=== PATIENT | female | born 1960 | race Caucasian/White ===

== ENCOUNTER 2016-10-08 18:38 | Emergency (ER) | payer MEDICARE, MEDICAID ==
[2016-10-08] MEDS ORDERED: ASPIRIN 81 MG TABLET, CHEWABLE PO ONE (18:44)
--- NOTE | 2016-10-08 18:46 | ER Document Report ---
ED Medical Screen (RME) - General Chief Complaint: Shortness Of Breath Stated Complaint: DIFFICULTY BREATHING/ARM NUMBNESS Mode of Arrival: Ambulatory Information source: Patient Notes: Patient presents to the emergency department with complaints of chest pain pain down her left arm since yesterday. Left arm tender when raising arm, chest wall ttp. Pt reports SOB.. dENIESs other symptoms such as diarrhea vomiting diarrhea fever. No history of cardiac disease. Patient does smoke, has high blood pressure. TRAVEL OUTSIDE OF THE [place] IN LAST 30 DAYS: No - Related Data Allergies/Adverse Reactions: Penicillins Allergy (Verified 10/08/16 18:44) Past Medical History - Social History Chew tobacco use (# tins/day): No Frequency of alcohol use: None Drug Abuse: None - Past Medical History Cardiac Medical History: Reports: Hx Hypertension Pulmonary Medical History: Reports: Hx Asthma Neurological Medical History: Reports: Hx Migraine Renal/ Medical History: Denies: Hx Kidney Stones, Hx Peritoneal Dialysis Musculoskeltal Medical History: Reports Hx Arthritis, Reports Hx Musculoskeletal Deformity Psychiatric Medical History: Reports: Hx Anxiety, Hx Depression Past Surgical History: Reports: Hx Abdominal Surgery - hiatal hernia, Hx Adenoidectomy, Hx Appendectomy, Hx Cholecystectomy, Hx Tonsillectomy, Hx Tubal Ligation - Immunizations Immunizations up to date: Yes Hx Diphtheria, Pertussis, Tetanus Vaccination: Yes
[2016-10-08 19:41] LABS: ALANINE AMINOTRANSFERASE 29 U/L (9-52); ALBUMIN 4.3 g/dL (3.5-5.0); ALKALINE PHOSPHATASE 67 U/L (38-126); ANION GAP 10 (5-19); ASPARTATE AMINO TRANSFERASE 26 U/L (14-36); BILIRUBIN,TOTAL 0.5 mg/dL (0.2-1.3); BLOOD UREA NITROGEN 14 mg/dL (7-20); CALCIUM 11.1 mg/dL (8.4-10.2); CARBON DIOXIDE 27 mmol/L (22-30); CHLORIDE 103 mmol/L (98-107); CREATININE RESULT 0.76 mg/dL (0.52-1.25); GLUCOSE 133 mg/dL (75-110); POTASSIUM 4.1 mmol/L (3.6-5.0); SODIUM 140.1 mmol/L (137-145)
[2016-10-08 19:43] LABS: ABSOLUTE EOSINOPHILS # (AUTO) 0.1 10^3/uL (0.0-0.6); ABSOLUTE LYMPHOCYTES (AUTO) 1.8 10^3/uL (0.5-4.7); ABSOLUTE MONOCYTES (AUTO) 0.4 10^3/uL (0.1-1.4); ABSOLUTE NEUT (AUTO) 2.5 10^3/uL (1.7-8.2); BASOPHILS % (AUTO) 0.8 % (0-2); EOSINOPHILS % (AUTO) 2.9 % (0-6); HEMATOCRIT 42.9 % (36.0-47.0); HEMOGLOBIN 14.5 g/dL (12.0-15.5); HGB HCT DIFFERENCE 0.6; LYMPHOCYTES % (AUTO) 36.5 % (13-45); MEAN CORPUSCULAR HEMOGLOBIN 30.5 pg (27.0-33.4); MEAN CORPUSCULAR HGB CONC 33.8 g/dL (32.0-36.0); MEAN CORPUSCULAR VOLUME 90 fl (80-97); MONOCYTES % (AUTO) 7.8 % (3-13); RED BLOOD COUNT 4.75 10^6/uL (3.72-5.28); RED CELL DISTRIBUTION WIDTH 12.8 % (11.5-14.0); WHITE BLOOD COUNT 4.9 10^3/uL (4.0-10.5)
--- NOTE | 2016-10-08 20:09 | EKG REPORT ---
SEVERITY:- ABNORMAL ECG - SINUS RHYTHM LEFT AXIS DEVIATION NONSPECIFIC T ABNORMALITIES, ANTERIOR LEADS : Confirmed by: Francia Gutiérrez 08-Oct-2016 20:08:05
[2016-10-08 21:36] LABS: CREATINE KINASE MB 0.35 ng/mL (<4.55)
[2016-10-08 21:39] LABS: TROPONIN I < 0.012 ng/mL
[2016-10-08 22:05] LABS: APPEARANCE,URINE CLEAR; BILIRUBIN,URINE NEGATIVE (NEGATIVE); CALCIUM OXALATE CRYSTALS,URINE FEW /HPF; GLUCOSE, URINE NEGATIVE (NEGATIVE); KETONES,URINE NEGATIVE (NEGATIVE); LEUKOCYTE ESTERASE,URINE NEGATIVE (NEGATIVE); NITRITE,URINE NEGATIVE (NEGATIVE); PROTEIN,URINE NEGATIVE (NEGATIVE); URINE SPECIFIC GRAVITY 1.024; UROBILINOGEN,URINE NEGATIVE mg/dL (<2.0)
--- NOTE | 2016-10-08 22:09 | ER Document Report ---
ED General - General Chief Complaint: Shortness Of Breath Stated Complaint: DIFFICULTY BREATHING/ARM NUMBNESS Mode of Arrival: Ambulatory Notes: Patient is a 56-year-old female with past medical history of hypertension who presents with 2 days of left shoulder pain as well as intermittent left-sided chest pain. Described the shoulder pain as being a severe, constant, sharp pain with radiation of the pain down the arm. This pain is worsened by range of motion of the shoulder. Denies history of similar symptoms in the past. She is not done anything to try to improve her symptoms. She has not seen her primary care doctor regarding today's concerns. She also notes that she has had intermittent central chest pain that is likewise described as being sharp and mild in nature. Denies any history of DVT or pulmonary embolus. No history of ACS. Denies any active chest pain at this time. Denies any associated nausea, vomiting, dyspnea, or diaphoresis. TRAVEL OUTSIDE OF THE [place] IN LAST 30 DAYS: No - Related Data Allergies/Adverse Reactions: Penicillins Allergy (Verified 10/08/16 18:44) Past Medical History - General Information source: Patient - Social History Smoking Status: Current Every Day Smoker Chew tobacco use (# tins/day): No Frequency of alcohol use: None Drug Abuse: None Lives with: Spouse/Significant other Family History: Reviewed & Not Pertinent - Past Medical History Cardiac Medical History: Reports: Hx Hypertension Pulmonary Medical History: Reports: Hx Asthma Neurological Medical History: Reports: Hx Migraine Renal/ Medical History: Denies: Hx Kidney Stones, Hx Peritoneal Dialysis Musculoskeltal Medical History: Reports Hx Arthritis, Reports Hx Musculoskeletal Deformity Psychiatric Medical History: Reports: Hx Anxiety, Hx Depression Past Surgical History: Reports: Hx Abdominal Surgery - hiatal hernia, Hx Adenoidectomy, Hx Appendectomy, Hx Cholecystectomy, Hx Tonsillectomy, Hx Tubal Ligation - Immunizations Immunizations up to date: Yes Hx Diphtheria, Pertussis, Tetanus Vaccination: Yes Review of Systems - Review of Systems Notes: Constitutional: Negative for fever. HENT: Negative for sore throat. Eyes: Negative for visual changes. Cardiovascular: Positive for chest pain. Respiratory: Negative for shortness of breath. Gastrointestinal: Negative for abdominal pain, vomiting or diarrhea. Genitourinary: Negative for dysuria. Musculoskeletal: Left shoulder pain Skin: Negative for rash. Neurological: Negative for headaches, weakness or numbness. 10 point ROS negative except as marked above and in HPI. Physical Exam - Vital signs Vitals: Temp Pulse Resp BP Pulse Ox 98.1 F 78 16 150/85 H 99 10/08/16 18:44 10/08/16 18:44 10/08/16 18:44 10/08/16 18:44 10/08/16 18:44 Interpretation: Hypertensive Notes: PHYSICAL EXAMINATION: GENERAL: Well-appearing, well-nourished and in no acute distress. HEAD: Atraumatic, normocephalic. EYES: Pupils equal round and reactive to light, extraocular movements intact, sclera anicteric, conjunctiva are normal. ENT: nares patent, oropharynx clear without exudates. Moist mucous membranes. NECK: Normal range of motion, supple without lymphadenopathy LUNGS: Breath sounds clear to auscultation bilaterally and equal. No wheezes rales or rhonchi. HEART: Regular rate and rhythm without murmurs Chest wall: Pain on palpation of the left central chest ABDOMEN: Soft, nontender, normoactive bowel sounds. No guarding, no rebound. No masses appreciated. EXTREMITIES: Pain with range of motion of the left shoulder. No deformity. AIN , PIN, IO intact bilaterally. RMU sensation is intact bilaterally NEUROLOGICAL: No focal neurological deficits. Moves all extremities spontaneously and on command. PSYCH: Normal mood, normal affect. SKIN: Warm, Dry, normal turgor, no rashes or lesions noted. Course - Re-evaluation Re-evalutation: 10/08/16 22:06 Patient presents with primary complaints of left shoulder pain with intermittent , reproducible left chest wall pain. Her primary complaint appears to be musculoskeletal in origin as she notes that the pain is worsened by range of motion of the left shoulder she does have pain radiating in a shooting, sharp fashion down her arm consistent likely a brachial plexopathy versus radiculopathy with associated bursitis of the shoulder. Low clinical suspicion for ACS given clinical history, exam, EKG without ST elevations or depressions, and negative initial troponin. HEART score less than or equal to 3. PE also seems unlikely given clinical history, absence of tachycardia or dyspnea. Well' s score is 0. CXR without evidence of pneumothorax or pneumonia. No widened mediastinum. Aortic dissection also seems unlikely given history, symmetric pulses, CXR, and vitals.At this time will discharge with return precautions and follow-up recommendations. Verbal discharge instructions given a the bedside and opportunity for questions given. Medication warnings reviewed. Patient is in agreement with this plan and has verbalized understanding of return precautions and the need for primary care follow-up in the next 24-72 hours. - Vital Signs Vital signs: Temp Pulse Resp BP Pulse Ox 98.1 F 78 15 111/70 97 10/08/16 18:44 10/08/16 18:44 10/08/16 22:00 10/08/16 22:00 10/08/16 22:00 - Laboratory Result Diagrams: 10/08/16 19:15 10/08/16 19:15 Laboratory results interpreted by me: 10/08/16 19:15 Glucose 133 H Calcium 11.1 H - Diagnostic Test Radiology reviewed: Image reviewed, Reports reviewed Radiology results interpreted by me: 10/08/16 22:08 Chest x-ray: No acute infiltrate or widened mediastinum - EKG Interpretation by Me Additional EKG results interpreted by me: 10/09/16 03:21 Normal sinus rhythm. No ST elevations or depressions. QTC is 416. Rate is 65. Discharge - Discharge Clinical Impression: Left shoulder pain Qualifiers: Chronicity: acute Qualified Code(s): M25.512 - Pain in left shoulder Condition: Good Disposition: HOME, SELF-CARE Additional Instructions: Your x-ray does not show any acute fracture today. He likely has a muscle strain You should continue to take anti-inflammatories such as ibuprofen 600 mg every 6 hours. Continue to apply ice to the area is much your able. Please follow-up with your primary care physician if you do not have improving your symptoms in the next 1-2 weeks. Please return immediately if you develop weakness, numbness, spreading redness from the area, or any other symptoms that are concerning to you. You were also seen today for chest pain. The exact cause of your pain is unclear but is likely related to your should pain. However , based on your cardiac enzyme testing, chest x-ray, and EKG it does not appear that it is from an immediately life-threatening cause at this time. Although your testing here is normal is critical that you follow-up with your primary care physician for continued evaluation of this chest pain and possible stress testing. I recommended you see your physician within the next 24-48 hours to be evaluated for consideration of a stress test. Please return to emergency department immediately if you have worsening of your chest pain, shortness of breath, vomiting, become unable to exert yourself due to pain or difficulty breathing, you pass out, or have any pain that radiates into your arms, jaw, or back. Please also return if you have any additional symptoms that are concerning to you.
[2016-10-08 23:17] VITALS: BP 111/70
== END 2016-10-08 22:19 | disposition home or self-care (01) ==
LOC: ER 18:38
DX: M25.512 Pain in left shoulder (principal); R07.89 Other chest pain; I10 Essential (primary) hypertension; J45.909 Unspecified asthma, uncomplicated; F17.200 Nicotine dependence, unspecified, uncomplicated; Z88.0 Allergy status to penicillin
CPT/HCPCS: 36415; 71020; 80053; 81001; 82550; 82553; 84484; 85025; 93005; 93010; 99285

== ENCOUNTER 2017-09-07 06:49 | Day surgery (SDC) | payer MEDICARE, MEDICAID ==
[2017-08-31 09:55] LABS: HEMATOCRIT 41.9 % (36.0-47.0); HEMOGLOBIN 14.4 g/dL (12.0-15.5); MEAN CORPUSCULAR HEMOGLOBIN 30.8 pg (27.0-33.4); MEAN CORPUSCULAR HGB CONC 34.4 g/dL (32.0-36.0); MEAN CORPUSCULAR VOLUME 90 fl (80-97); PLATELET COUNT 245 10^3/uL (150-450); RED BLOOD COUNT 4.68 10^6/uL (3.72-5.28); RED CELL DISTRIBUTION WIDTH 12.9 % (11.5-14.0); WHITE BLOOD COUNT 8.5 10^3/uL (4.0-10.5)
[2017-08-31 10:26] LABS: BLOOD UREA NITROGEN 12 mg/dL (7-20); CALCIUM 10.1 mg/dL (8.4-10.2); CARBON DIOXIDE 25 mmol/L (22-30); CHLORIDE 104 mmol/L (98-107); GLUCOSE 93 mg/dL (75-110); POTASSIUM 3.7 mmol/L (3.6-5.0); SODIUM 141.9 mmol/L (137-145)
[2017-08-31 10:27] LABS: ANION GAP 13 (5-19)
[~2017-09-07 06:49] MED LIST: CLINDAMYCIN 600 MG/D5W RTU 600 MG/50 ML RTUPB IV PRN; LACTATED RINGERS 1000 ML IV PRN; LIDOCAINE 0.5% INJ-PF (5 MG/ML) 50 ML SDV SUBCUT PRN
[2017-09-07] MEDS ORDERED: LIDOCAINE 1% INJ-PF (10 MG/ML) 30 ML SDV ONE (07:33)
[2017-09-07] MEDS ORDERED: KETAMINE HCL INJ 500 MG/10 ML VIAL ONE (08:58)
[2017-09-07] MEDS ORDERED: FENTANYL CITRATE INJ/PF 100 MCG/2 ML AMPUL ONE (08:58)
[2017-09-07] MEDS ORDERED: MIDAZOLAM 2 MG/2 ML INJ ONE (08:59)
[2017-09-07] MEDS ORDERED: PROPOFOL INJ 200 MG/20 ML VIAL IV ONE (08:59)
[2017-09-07] MEDS ORDERED: ACETAMINOPHEN 100 ML IV ONE (08:59)
[2017-09-07] MEDS ORDERED: FENTANYL CITRATE INJ/PF 100 MCG/2 ML AMPUL IV PRN (09:30)
[2017-09-07] MEDS ORDERED: DIPHENHYDRAMINE HCL 50 MG/ML VIAL IV PRN (09:30)
[2017-09-07] MEDS ORDERED: MEPERIDINE HCL/PF INJ 25 MG/1 ML DISP.SYRIN IV PRN (09:30)
[2017-09-07] MEDS ORDERED: PROMETHAZINE HCL INJ 25 MG/1 ML VIAL IV PRN (09:30)
[2017-09-07] MEDS ORDERED: MORPHINE SULFATE 10 MG/ML INJ IV PRN (09:30)
--- NOTE | 2017-09-07 10:01 | PDOC DISCHARGE SUMMARY ---
Discharge Summary (SDC) - Discharge Final Diagnosis: Lipoma of the sacrum Date of Surgery: 09/07/17 Discharge Date: 09/07/17 Condition: Good Treatment or Instructions: Patient to avoid sitting for prolonged periods; remove dressing in 48 hours; exercise meticulous perineal care. Prescription on chart for Toradol; return to [facility] follow-up with LEIGH Fu in 1-2 weeks Prescriptions: Ketorolac Tromethamine [Toradol 10 mg Tablet] 10 mg PO Q6HP PRN #20 tablet PRN Reason: Referrals: ZAN JOHNSON MD [Primary Care Provider] - Discharge Diet: As Tolerated Discharge Activity: Activity As Tolerated Home Care Assistance: None Needed Report the Following to Your Physician Immediately: Shortness of Breath, Increase in Pain, Fever over 101 Degrees
--- NOTE | 2017-09-07 10:06 | Operative Report ---
Operative Report DATE OF SURGERY: 09/07/17 PREOPERATIVE DIAGNOSIS: Lipoma of the sacrum POSTOPERATIVE DIAGNOSIS: Same OPERATION: Complete excision of lipoma of the sacrum, with primary closure SURGEON: DEBRA PEREZ ANESTHESIA: LMAC TISSUE REMOVED OR ALTERED: Lipoma in fragments COMPLICATIONS: None ESTIMATED BLOOD LOSS: Scant INTRAOPERATIVE FINDINGS: See below PROCEDURE: Patient is seen in the preop holding area with a left choroidal lipoma was marked. The lipoma was to the left of midline above left buttock. I marked the patient's skin for the proposed site of the operative incision. Patient was taken to the operating room where appropriate LMAC anesthesia was induced. She was placed in the right lateral decubitus position, buttocks and sacrococcygeal area exposed using tape the target tissue was prepped and draped in a sterile fashion. Surgical plan surgical timeout were conducted. Skin was anesthetized with 1% plain lidocaine as was the deep subcutaneous tissue. A slightly curvilinear 4-1/2 cm incision was made over the palpable mass. Subcutaneous mass was excised using a combination of blunt, electrocautery, and Ermelinda dissection. This was a lipoma based on clinical and intraoperative configuration appearance texture etc. It came out and fragments. It was sent to pathology for permanent analysis Excavation cavity examined carefully for residual lipoma and there was none. The wound was checked for bleeding and there was none. Wound closed with 3-0 Vicryl benzoin Steri-Strips and a gentle compression dressing applied. Patient tolerated procedure well, taken recovery room stable condition.
[2017-09-07] MEDS ORDERED: RINGERS SOLUTION,LACTATED 1,000 ML IV ONE (10:45)
[2017-09-07] MEDS ORDERED: ONDANSETRON HCL INJ/PF 4 MG/2 ML SDV ONE (12:16)
[2017-09-07 13:07] VITALS: BP 105/65
== END 2017-09-07 12:50 | disposition home or self-care (01) ==
LOC: OROUT 06:49
PROVIDERS: ATTEND Surgery
PROC: 0JB70ZZ Excision of Back Subcutaneous Tissue and Fascia, Open Approach (ICD-10-PCS; principal; 2017-09-07 09:00)
DX: D17.1 Benign lipomatous neoplasm of skin and subcutaneous tissue of trunk (principal); I10 Essential (primary) hypertension; Z88.3 Allergy status to other anti-infective agents; Z88.0 Allergy status to penicillin; Z87.891 Personal history of nicotine dependence; Z79.899 Other long term (current) drug therapy
CPT/HCPCS: 36415 ×2; 84132; 85027; 80048; 88304 ×2; 11406; J2250; J3010; J3490; J2405; J2704; J0131; 300

== ENCOUNTER 2018-02-05 05:25 | Day surgery (SDC) | payer MEDICARE, MEDICAID ==
[2018-01-24 09:49] LABS: INTERNATIONAL RATION (INR) 0.95; PROTHROMBIN TIME 13.2 SEC (11.4-15.4)
[2018-01-24 09:50] LABS: PARTIAL THROMBOPLASTIN TIME 26.4 SEC (23.5-35.8)
[2018-01-24 09:51] LABS: ABSOLUTE EOSINOPHILS # (AUTO) 0.1 10^3/uL (0.0-0.6); ABSOLUTE LYMPHOCYTES (AUTO) 1.6 10^3/uL (0.5-4.7); ABSOLUTE MONOCYTES (AUTO) 0.4 10^3/uL (0.1-1.4); ABSOLUTE NEUT (AUTO) 2.4 10^3/uL (1.7-8.2); BASOPHILS % (AUTO) 0.9 % (0-2); EOSINOPHILS % (AUTO) 3.1 % (0-6); HEMATOCRIT 40.1 % (36.0-47.0); LYMPHOCYTES % (AUTO) 34.9 % (13-45); MEAN CORPUSCULAR HEMOGLOBIN 31.3 pg (27.0-33.4); MEAN CORPUSCULAR HGB CONC 34.9 g/dL (32.0-36.0); MEAN CORPUSCULAR VOLUME 90 fl (80-97); MONOCYTES % (AUTO) 8.3 % (3-13); PLATELET COUNT 246 10^3/uL (150-450); RED BLOOD COUNT 4.46 10^6/uL (3.72-5.28); RED CELL DISTRIBUTION WIDTH 12.8 % (11.5-14.0); SEGMENTED NEUTROPHILS % (AUTO) 52.8 % (42-78); TOTAL CELLS COUNTED % (AUTO) 100 %; WHITE BLOOD COUNT 4.5 10^3/uL (4.0-10.5)
--- NOTE | 2018-01-25 00:21 | EKG REPORT ---
SEVERITY:- BORDERLINE ECG - SINUS BRADYCARDIA LEFT AXIS DEVIATION BORDERLINE T ABNORMALITIES, ANTERIOR LEADS : Confirmed by: Dary Gonzalez MD 25-Jan-2018 00:20:08
[~2018-02-05 05:25] MED LIST changes: -CLINDAMYCIN 600 MG/D5W RTU 600 MG/50 ML RTUPB IV PRN; +DOXYCYCLINE HYCLATE 100 MG in DEXTROSE 5%-WATER 250 ML IV PRN
[2018-02-05] MEDS ORDERED: LIDOCAINE 1%/EPINEPHRINE INJ 20 ML VIAL ONE (06:01)
[2018-02-05] MEDS ORDERED: SODIUM BICARBONATE 8.4% INJ 50 MEQ/50 ML DISP.SYRIN ONE (06:01)
[2018-02-05] MEDS ORDERED: NEO/POLYMYX B SULF/DEXAMETH OPH OINTMENT 3.5 GM ONE (06:01)
[2018-02-05] MEDS ORDERED: POVIDONE-IODINE 5% OPH PREP SOLN 30 ML ONE (06:01)
[2018-02-05] MEDS ORDERED: BALANCED SALT IRRIG SOLN COMB2 15 ML BOTTLE ONE (06:01)
[2018-02-05] MEDS ORDERED: FENTANYL CITRATE INJ/PF 100 MCG/2 ML AMPUL ONE (06:46)
[2018-02-05] MEDS ORDERED: MIDAZOLAM 2 MG/2 ML INJ ONE ×2 (06:46→07:54)
[2018-02-05] MEDS ORDERED: PROPOFOL INJ 200 MG/20 ML VIAL IV ONE (06:47)
[2018-02-05] MEDS ORDERED: MORPHINE SULFATE 10 MG/ML INJ IV PRN (09:44)
[2018-02-05] MEDS ORDERED: PROMETHAZINE HCL INJ 25 MG/1 ML VIAL IV PRN (09:44)
[2018-02-05] MEDS ORDERED: DIPHENHYDRAMINE HCL 50 MG/ML VIAL IV PRN (09:44)
[2018-02-05] MEDS ORDERED: FENTANYL CITRATE INJ/PF 100 MCG/2 ML AMPUL IV PRN ×3 (09:44)
[2018-02-05] MEDS ORDERED: MEPERIDINE HCL/PF INJ 25 MG/1 ML DISP.SYRIN IV PRN (09:44)
--- NOTE | 2018-02-05 10:14 | Operative Report ---
Operative Report DATE OF SURGERY: 02/05/18 PREOPERATIVE DIAGNOSIS: Bilateral dermatochalasis of the upper lids of the eyelid POSTOPERATIVE DIAGNOSIS: Same OPERATION: Bilateral upper lid blepharoplasty with exploration of the nasal and central compartments with electrodesiccation of excess fat SURGEON: MICHELLE OCHOA ANESTHESIA: LMAC TISSUE REMOVED OR ALTERED: Excess skin of bilateral upper eyelids COMPLICATIONS: None ESTIMATED BLOOD LOSS: Minimal PROCEDURE: The patient was marked the night before to be sure that the outlines would remove the maximum amount of excess skin. The patient was then seen prior to surgery and final questions were answered. The patient was brought into the operating room. The face and the eyelids were prepped with a Betadine solution and a Betadine ophthalmic solution. The patient was then draped in a sterile and aseptic manner. An outline was made for the amount of skin to be resected. The supratarsal fold was poorly defined and had to be created. Once the lower lines were drawn, the amount of skin to be resected was determined in multiple areas on each lid in order to define the upper line of resection. Once the outline was done on the first side it was then marked on the second side and adjustments were made to try to give as much symmetry as possible. After a timeout was performed the eyelid skin was anesthetized. An incision was then made at the lower outline and then the upper outline and then using a Whiteside tip the skin was removed. A strip of orbicularis oculi muscle was also removed. The bipolar was used for hemostasis throughout the case. The nasal and central fat pads were explored. Excess fat was removed via desiccation. There was no bleeding after the fat was removed. The bipolar was used to create a new supratarsal fold. This was started from the nasal side and the bipolar was used along the curvature where the new supratarsal fold would be best placed in order to cause a crease in give a better aesthetic appearance. The wound was irrigated with a Betadine saline solution. Again hemostasis was confirmed with the bipolar. Interrupted sutures were then placed to realign the skin margins. 6 .0 Prolene was used for the interrupted sutures. Attention was then turned towards the opposite side. The same procedure was then performed on the opposite side. Once the tacking sutures were in place attention was then turned towards the first side. A running 6-0 Prolene suture was used to close the skin margins on both sides. The eyes were irrigated with basic saline solution as well as the incision lines. Topical ophthalmic ointment was applied to both eyes and incisions. Throughout the case cool went I dressings were used to minimize bruising. At the end of the case eye pads with saline were placed and a light ice bag was applied. Patient was then reversed from anesthesia and taken to the PAR for recovery. This dictation was performed using [employer] naturally speaking. If there are any inconsistencies or hours please contact the dictating physician. Thank you very much Subjective: No complaints Objective: Vital signs stable afebrile No bleeding Dressing intact Assessment and plan: Doing well. Elevate the operative site. Resume medications. Take antibiotics for 1 day Follow-up Full instructions were given to the patient and family and they understand Portions of this note may be dictated using [employer] voice recognition software. Occasional variations and spelling and vocabulary could be possible and are unintentional. Additionally, there is a chance that some errors may not be caught or corrected. Please notify the offer of any discrepancies noted or if any statements are unclear.
[2018-02-05] MEDS: FENTANYL CITRATE INJ/PF 100 MCG/2 ML AMPUL ONE ×2 (10:19→10:25)
--- NOTE | 2018-02-05 10:19 | Discharge Summary ---
Discharge Summary (SDC) - Discharge Final Diagnosis: Excess skin of bilateral upper eyelids Date of Surgery: 02/05/18 Condition: Good Treatment or Instructions: Keep head elevated. Use balanced saline solution in each eye and then apply the ophthalmic ointment to each eye and incision every 6 hours and in the morning and at night before going to bed. Place ice on eyes for 5-10 minutes and then leave it off for approximately 30 minutes. Do not put ice packs directly on the incisions. Use the eye pads to protect the incisions and the eye and place the ice on top of the eye pads. Antibiotics for 1 day, then discontinue. Elevate operative area to decrease swelling. Do not strain, or lift heavy objects. Call for excessive bleeding, increased temperature of 101, uncontrolled pain, or excessive nausea or vomiting. You may reach Dr. Palmer through his office at [phone]. In the event of an emergency after hours, then contact Dr. Palmer through [facility]. Return to the office for a postop check on . The time will be scheduled by the nursing staff of [facility] prior to discharge. Please give the patient a copy of their labs and EKG so they can bring this to their PMD. Thank you Portions of this note may be dictated using [employer] voice recognition software. Occasional variations and spelling and vocabulary could be possible and are unintentional. Additionally, there is a chance that some errors may not be caught or corrected. Please notify the offer of any discrepancies noted or if any statements are unclear. Referrals: ZAN JOHNSON MD [Primary Care Provider] - Discharge Diet: As Tolerated Report the Following to Your Physician Immediately: Unusual Bleeding - Keep head elevated. Do not rub the eyes. Use ice on and off over the next several days to control swelling and bruising. Apply balanced saline solution to each eye and incision every 6 hours and before bedtime and in the morning on awakening. Apply Maxitrol ointment after the balanced saline solution with the above protocol.
[2018-02-05 12:17] VITALS: BP 124/74
== END 2018-02-05 12:22 | disposition home or self-care (01) ==
LOC: OROUT 05:25
PROVIDERS: ATTEND Plastic Surgery
PROC: 080NXZZ Alteration of Right Upper Eyelid, External Approach (ICD-10-PCS; 2018-02-05)
PROC: 080PXZZ Alteration of Left Upper Eyelid, External Approach (ICD-10-PCS; principal; 2018-02-05 07:30)
DX: H02.31 Blepharochalasis right upper eyelid (principal); H02.34 Blepharochalasis left upper eyelid; Z79.01 Long term (current) use of anticoagulants; E11.9 Type 2 diabetes mellitus without complications; I10 Essential (primary) hypertension; Z86.718 Personal history of other venous thrombosis and embolism; Z87.891 Personal history of nicotine dependence
CPT/HCPCS: 93005; 36415 ×2; 84132; 85025; 85610; 85730; 93010; 15823; J2250; J3490 ×6; J3010; J7060; J2704; 103

== ENCOUNTER → 2018-10-24 | Outpatient (CLI) | payer MEDICARE, MEDICAID ==
--- NOTE | 2018-10-25 14:07 | WOMENS IMAGING REPORT ---
EXAM DESCRIPTION: 3D SCREENING MAMMO BILAT COMPLETED DATE/TIME: 10/24/2018 2:53 pm REASON FOR STUDY: Z12.31 ENCOUNTER FOR SCREENING MAMMOGRAM FOR MALIGNANT NEOPLASM OF BREAST Z12.31 ENCNTR SCREEN MAMMOGRAM FOR MALIGNANT NEOPLASM OF BLADIMIR COMPARISON: 2015 TECHNIQUE: Standard craniocaudal and mediolateral oblique views of each breast recorded using digita l acquisition and breast tomosynthesis. LIMITATIONS: None. FINDINGS: No masses, calcifications or architectural distortion. No areas of suspicion. Read with the assistance of CAD. .[facility] - R2 Cenova Version 1.3 .[facility] - R2 Cenova Version 2.1 .[facility] - R2 Cenova Version 2.4 .[facility] [place] - R2 Cenova Version 2.4 .[facility] - R2 Coating And Baking Operator Version 9.2 IMPRESSION: NORMAL MAMMOGRAM. BIRADS 1. BREAST DENSITY: b. There are scattered areas of fibroglandular density. BIRAD: 1 NEGATIVE RECOMMENDATION: ROUTINE SCREENING COMMENT: The patient has been notified of the results by letter per SA requirements. Additional no tification policies are in place for contacting patient with suspicious or incomplete findings. Quality ID #[id number]: The [employer] recommends an annual screening mammogram for women aged 40 years or over. This facility utilizes a reminder system to ensure that all patients receive reminder letters, and/or direct phone calls for appointments. This includes reminders for routine scr eening mammograms, diagnostic mammograms, or other Breast Imaging Interventions when appropriate. Th is patient will be placed in the appropriate reminder system. The [employer] (ACR) has developed recommendations for screening MRI of the breast s in certain patient populations, to be used in conjunction with mammography. Breast MRI surveillanc e may be appropriate for women with more than 20% lifetime risk of developing breast cancer as deter mined by genetic testing, significant family history of the disease, or history of mantle radiation f or Hodgkins Disease. ACR Practice Guidelines 2008. DBT Technology DBT is a type of tomographic mammography. With conventional mammography, overlapping breast tissue ma y make lesions difficult to detect, even with good compression. DBT uses an x-ray tube that rotates a round the breast, taking images at different angles. These images are then combined to create thin sl ices of the breast that the radiologist can view as a 3D reconstruction. The feedPack unit can perform full-field digital mammograms (2D imaging); or DBT (3D imaging); or both, in a combination mode that quickly performs both the mammogram and the tomosynthesis scan while the breast is still compressed. PQRS 6045F: Fluoroscopic imaging is not utilized for breast tomosynthesis. TECHNICAL DOCUMENTATION: FINDING NUMBER: (1) ASSESSMENT: (1) JOB ID: [id number] [employer]- All Rights Reserved Reading location - IP/workstation name: [employer]ATIONAL MARKETING COORDINATOR-[email or web address]
== END ==
LOC: WI 09:15
PROVIDERS: ATTEND Internal Medicine
DX: Z12.31 Encounter for screening mammogram for malignant neoplasm of breast (principal)
CPT/HCPCS: 77063; 77067

== ENCOUNTER → 2018-10-25 | Outpatient (CLI) | payer MEDICARE, MEDICAID ==
--- NOTE | 2018-10-25 15:53 | RADIOLOGY REPORT (SQ) ---
EXAM DESCRIPTION: CT ABD/PELVIS WITH IV ORAL COMPLETED DATE/TIME: 10/25/2018 3:33 pm REASON FOR STUDY: VOMITING, UNSPECIFIED R11.10 VOMITING, UNSPECIFIED COMPARISON: 11/08/2014 TECHNIQUE: CT scan of the abdomen and pelvis performed using helical scanning technique with dynamic intravenous contrast injection. No oral contrast. Images reviewed with lung, soft tissue, and bone windows. Reconstructed coronal and sagittal MPR images reviewed. Delayed images for evaluation of the urinary system also acquired. All images stored on PACS. All CT scanners at this facility use dose modulation, iterative reconstruction, and/or weight based d osing when appropriate to reduce radiation dose to as low as reasonably achievable (ALARA). [facility]: Dose Right [facility]: CareDose [facility]: Dose Right [facility]: Teradose 4D [facility]: Prematics CONTRAST TYPE AND DOSE: contrast/concentration: Isovue 350.00 mg/ml; Total Contrast Delivered: 87.0 ml; Total Saline Delivered: 69.0 ml RENAL FUNCTION: Creatinine 0.7 RADIATION DOSE: CT Rad equipment meets quality standard of care and radiation dose reduction techniq ues were employed. CTDIvol: 7.4 - 8.5 mGy. DLP: 837 mGy-cm.. LIMITATIONS: None. FINDINGS: LOWER CHEST: No significant findings. No nodules or infiltrates. LIVER: Normal size. No masses. No dilated ducts. SPLEEN: Normal size. No focal lesions. PANCREAS: No masses. No significant calcifications. No adjacent inflammation or peripancreatic fluid collections. Pancreatic duct not dilated. GALLBLADDER: Surgically absent. ADRENAL GLANDS: No significant masses or asymmetry. RIGHT KIDNEY AND URETER: No solid masses. No significant calcifications. No hydronephrosis or hyd roureter. LEFT KIDNEY AND URETER: No solid masses. No significant calcifications. No hydronephrosis or hydr oureter. AORTA AND VESSELS: No aneurysm. No dissection. Renal arteries, SMA, celiac without stenosis. RETROPERITONEUM: No retroperitoneal adenopathy, hemorrhage or masses. BOWEL AND PERITONEAL CAVITY: Prior gastric banding. No inflammatory changes. No bowel wall thickeni ng. There are postsurgical changes in the right lower quadrant. Evidence of prior hernia repair. APPENDIX: Prior appendectomy. PELVIS: No mass. No free fluid. Normal bladder. ABDOMINAL WALL: No masses. No hernias. BONES: No significant or acute findings. OTHER: No other significant finding. IMPRESSION: NO SIGNIFICANT OR ACUTE FINDING IN THE ABDOMEN OR PELVIS ON CT SCAN WITH IV CONTRAST. TECHNICAL DOCUMENTATION: JOB ID: [id number] Quality ID # [id number]: Final reports with documentation of one or more dose reduction techniques (e.g., Au tomated exposure control, adjustment of the mA and/or kV according to patient size, use of iterative reconstruction technique) 2010 [employer]- All Rights Reserved Reading location - IP/workstation name: [email or web address]
== END ==
LOC: RAD 14:05
PROVIDERS: ATTEND Internal Medicine
DX: R11.10 Vomiting, unspecified (principal)
CPT/HCPCS: 74177; 82565

== ENCOUNTER 2018-11-04 14:22 | Emergency (ER) | payer MEDICARE, MEDICAID ==
[2018-11-04] MEDS ORDERED: IBUPROFEN 800 MG TABLET PO ONE (15:54)
[2018-11-04] MEDS ORDERED: KETOROLAC TROMETHAMINE 60 MG/2 ML SDV IM ONE (16:01)
--- NOTE | 2018-11-04 16:30 | RADIOLOGY REPORT (SQ) ---
EXAM DESCRIPTION: HIP RIGHT AP/LATERAL COMPLETED DATE/TIME: 11/04/2018 4:17 pm REASON FOR STUDY: fall pain swelling COMPARISON: None. NUMBER OF VIEWS: Two views. TECHNIQUE: AP pelvis and additional frog-leg view of the right hip. LIMITATIONS: None. FINDINGS: MINERALIZATION: Normal. RIGHT HIP: No fracture or dislocation. No worrisome bone lesions. LEFT HIP: No fracture or dislocation. No worrisome bone lesions. PUBIS AND ISCHIUM: No fracture. PELVIS: No fracture. SACRUM: No fracture or dislocation. No worrisome bone lesions. LOWER LUMBAR SPINE: No fracture or dislocation. No worrisome bone lesions. No significant disc disea se. SOFT TISSUES: No findings. OTHER: No other significant finding. IMPRESSION: NEGATIVE STUDY OF THE RIGHT HIP. NO RADIOGRAPHIC EVIDENCE OF ACUTE INJURY. TECHNICAL DOCUMENTATION: JOB ID: [id number] [employer]- All Rights Reserved Reading location - IP/workstation name: [email or web address]
--- NOTE | 2018-11-04 16:31 | RADIOLOGY REPORT (SQ) ---
EXAM DESCRIPTION: L SPINE WHOLE COMPLETED DATE/TIME: 11/04/2018 4:17 pm REASON FOR STUDY: fall pain swelling COMPARISON: 05/15/2011 NUMBER OF VIEWS: Five views including obliques. TECHNIQUE: AP, lateral, oblique, and sacral radiographic images acquired of the lumbar spine. LIMITATIONS: None. FINDINGS: MINERALIZATION: Normal. SEGMENTATION: Normal. No transitional anatomy. ALIGNMENT: Normal. VERTEBRAE: Maintained height. No fracture or worrisome bone lesion. DISCS: Mild to moderate disc space narrowing at L5-S1. No significant osteophytes or end plate irre gularity. POSTERIOR ELEMENTS: Moderate facet arthrosis lower lumbar spine. Pedicles are intact. No pars defe ct or posterior arch defects. HARDWARE: None in the spine. PARASPINAL SOFT TISSUES: Normal. PELVIS: Intact as visualized. No fractures or worrisome bone lesions. SI joints intact. OTHER: Interval lap band procedure and hernia repair with multiple innumerable surgical anchors over lying the right hemipelvis. Prior cholecystectomy, stable finding. IMPRESSION: 1. Degenerative mild to moderate changes as above. 2. No acute osseous findings. TECHNICAL DOCUMENTATION: JOB ID: [id number] [employer]- All Rights Reserved Reading location - IP/workstation name: [email or web address]
[2018-11-04 17:45] VITALS: BP 101/60
[2018-11-04] MEDS ORDERED: LIDOCAINE 5% (700 MG) TRANSDERMAL ADH..PATCH TP ONE (17:50)
--- NOTE | 2018-11-04 17:51 | ER Document Report ---
ED Extremity Problem, Lower - General Chief Complaint: Leg Pain Stated Complaint: FALL/SIDE PAIN Time Seen by Provider: 11/04/18 15:22 Primary Care Provider: [facility] [Provider Group] - Follow up as needed ZAN JOHNSON MD [Primary Care Provider] - Follow up in 3-5 days Mode of Arrival: Wheelchair Information source: Patient Notes: 58-year-old female presents to ED for complaint of right ankle coccyx and right pelvic pain. She states today she twisted her ankle as she fell landing on her back. Patient states she has a history of chronic back pain and nerve damage to her right leg. She states she is able to move her ankle freely and she does not needed x-ray but she does need her back and hip x-ray. TRAVEL OUTSIDE OF THE [place] IN LAST 30 DAYS: No - HPI Patient complains to provider of: Injury, Pain Location: Ankle, Back, Buttock, Hip Occurred: This morning Where: Home, Indoors Onset/Duration: Intermittent Quality of pain: Achy, Sharp Severity: Severe Pain Level: 5 Context: Fell, Twisted Recent injury: Yes Associated symptoms: Painful ambulation Exacerbated by: Movement, Walking Relieved by: Elevation, Ice, Rest - Related Data Allergies/Adverse Reactions: nitrofurantoin [From Macrobid] Allergy (Verified 11/04/18 14:45) Anxiety Penicillins Allergy (Verified 11/04/18 14:45) TAPE Allergy (Uncoded 11/04/18 14:45) RASH Past Medical History - General Information source: Patient - Social History Smoking Status: Current Every Day Smoker Cigarette use (# per day): Yes - 1/2 pack/day Chew tobacco use (# tins/day): No Smoking Education Provided: Yes - 4 minutes Frequency of alcohol use: None Drug Abuse: None Family History: Reviewed & Not Pertinent Patient has suicidal ideation: No Patient has homicidal ideation: No - Past Medical History Cardiac Medical History: Reports: Hx Hypertension Pulmonary Medical History: Reports: Hx Asthma EENT Medical History: Reports: None Neurological Medical History: Reports: Hx Migraine, Hx Seizures - POST THIRD 1980S, FROM [place]XEM[place] Endocrine Medical History: Reports: None Renal/ Medical History: Reports: None Malignancy Medical History: Reports: None GI Medical History: Reports: None Musculoskeletal Medical History: Reports Hx Arthritis, Reports Hx Musculoskeletal Deformity Skin Medical History: Reports None Psychiatric Medical History: Reports: Hx Anxiety, Hx Depression Traumatic Medical History: Reports: None Infectious Medical History: Reports: None Past Surgical History: Reports: Hx Abdominal Surgery - hiatal hernia lap band, abdominal hernia repair, Hx Adenoidectomy, Hx Appendectomy, Hx Cholecystectomy, Hx Tonsillectomy, Hx Tubal Ligation - Immunizations Immunizations up to date: Yes Hx Diphtheria, Pertussis, Tetanus Vaccination: Yes Review of Systems - Review of Systems Constitutional: No symptoms reported EENT: No symptoms reported Cardiovascular: No symptoms reported Respiratory: No symptoms reported Gastrointestinal: No symptoms reported Genitourinary: No symptoms reported Female Genitourinary: No symptoms reported Musculoskeletal: Back pain, Joint pain - Right hip and ankle, Muscle pain, Muscle stiffness. denies: Joint swelling Skin: No symptoms reported Hematologic/Lymphatic: No symptoms reported Neurological/Psychological: No symptoms reported -: Yes All other systems reviewed and negative Physical Exam - Vital signs Vitals: Temp Pulse Resp BP Pulse Ox 98.3 F 72 16 108/67 95 11/04/18 14:56 11/04/18 14:56 11/04/18 14:56 11/04/18 14:56 11/04/18 14:56 Interpretation: Normal - General General appearance: Appears well, Alert - HEENT Head: Normocephalic, Atraumatic Eyes: Normal Pupils: PERRL - Respiratory Respiratory status: No respiratory distress Chest status: Nontender Breath sounds: Normal Chest palpation: Normal - Cardiovascular Rhythm: Regular Heart sounds: Normal auscultation Murmur: No - Abdominal Inspection: Normal, Healed incision - Old scars Distension: No distension Bowel sounds: Normal Tenderness: Nontender Organomegaly: No organomegaly - Back Back: Normal, Nontender, Tender, Vertebra tenderness Notes: No signs or symptoms of cauda equina, no loss of control of bowel bladder, saddle anesthesia, loss control or sensation to the lower extremities. Patient is able to walk but states it is painful. - Extremities General upper extremity: Normal inspection, Nontender, Normal color, Normal ROM, Normal temperature General lower extremity: Normal inspection, Nontender, Normal color, Normal ROM, Normal temperature, Normal weight bearing. No: Rodríguez's sign Hip: Tender, Pain with ROM. No: Abrasion, Deformity, Dislocation, Ecchymosis, Instability, Laceration, Unable to bear weight Ankle: Normal, Nontender, Tender. No: Abrasion, Deformity, Ecchymosis, Edema, Instability, Laceration, Limited ROM, Positive Luevano's test, Unable to bear weight Foot: Normal, Nontender - Neurological Neuro grossly intact: Yes Cognition: Normal Orientation: AAOx4 Anay Coma Scale Eye Opening: Spontaneous [place] Coma Scale Verbal: Oriented [place] Coma Scale Motor: Obeys Commands [place] Coma Scale Total: 15 Speech: Normal Motor strength normal: LUE, RUE, LLE, RLE Sensory: Normal - Psychological Associated symptoms: Normal affect, Normal mood - Skin Skin Temperature: Warm Skin Moisture: Dry Skin Color: Normal Course - Re-evaluation Re-evalutation: 11/04/18 21:27 Patient stated that the Toradol injection really helped her pain a lot. She states she has a history of chronic pain in the back. She is able to walk after her Toradol injection. Patient treated with Lidoderm patch and given instructions on ibuprofen ice heat and exercise. Patient was discharged home with instructions to follow-up with primary care doctor. - Vital Signs Vital signs: Temp Pulse Resp BP Pulse Ox 98.3 F 60 16 101/60 94 11/04/18 17:44 11/04/18 17:44 11/04/18 17:44 11/04/18 17:44 11/04/18 17:44 - Diagnostic Test Radiology reviewed: Image reviewed, Reports reviewed Discharge - Discharge Clinical Impression: Acute exacerbation of chronic low back pain Fall Qualifiers: Encounter type: initial encounter Qualified Code(s): W19.XXXA - Unspecified fall, initial encounter Condition: Stable Disposition: HOME, SELF-CARE Additional Instructions: Chronic Back Pain Chronic back pain (pain persisting longer than three months) is a common problem. A medical evaluation can look for herniated disc, arthritis, osteoporosis, tumors, and infections. But at least half the time, there's no obvious treatable cause. Anxiety and depression tend to worsen back pain. Ibuprofen or other anti-inflammatory medicine can help. A heating pad, used for 15-20 minutes at a time, can ease pain. For this type of back pain, narcotic medicines should be avoided. Muscle relaxers are rarely helpful unless you're having spasms. Activity is important. Find an aerobic exercise program that your back can tolerate. Too much rest makes back pain worse. Specific back exercises are usually prescribed to strengthen the back and abdominal muscles. Often, a physical therapist can help. Avoid heavy lifting, working while bent over, or standing with both knees straight. Most back pain patients do better with a firm mattress. If new symptoms of a "herniated disc" (radiation of pain, numbness, or tingling down the back of the leg or weakness in the leg) occur, you should be re-examined. Toradol Injection You have been given an injection of ketorolac tromethamine (Toradol). This is an excellent, safe drug for pain control. It also has potent antiinflammato ry action. You should have significant pain relief within about one hour. Toradol is not addicting and is non-sedating. It does not interfere with driving or work. Call or return if you develop itching, hives, shortness of breath, or rash. MUSCLE RELAXERS: Muscle relaxing medications are usually prescribed for acute muscle spasm or injury to the neck and back. They are often combined with antiinflammatory pain medication for increased relief. You may stop the muscle relaxer when the pain and stiffness have improved. Start the medication again if spasms recur. Muscle relaxers may cause drowsiness, especially with the first dose. Do not operate machinery or drive while under the effects of the medication. Most muscle relaxers last up to 24 hours. Do not combine the medication with alcohol. ICE PACKS: Apply ice packs frequently against the painful area. Many different schedules are recommended, such as "20 minutes on, 20 minutes off" or "one hour ice, two hours rest." If you need to work, you may need to go longer between ice treatments. You should plan to have the area ice packed AT LEAST one fourth of the time. The ice should be applied over the wrap, tape, or splint, or over a layer of cloth -- not directly against the skin. Some ice bags have a built-in cloth and can be put directly on the skin. WARM PACKS: After approximately two days, apply gentle heat (such as a heating pad or hot water bottle) for about 20 to 30 minutes about every two hours -- at least four times daily. Warmth and elevation will help you make a more rapid recovery, and will ease the pain considerably. Do not use HOT heat, and never apply heat for longer than 30 minutes. The continuous heat can invisibly damage skin and muscles -- even when no burn is seen on the surface. Damaged muscles can make you MORE sore. Stretching Exercises for the Back The physician has recommended that you begin stretching exercises for your back. These are often used even while the back is painful. However, you should notify the physician if the activities seem to increase your pain. PELVIC TILT: Lie flat on your back with knees bent. Tighten your stomach and buttock muscles so it flattens your lower back against the floor. Hold 10 seconds. Repeat 10 times, twice daily. KNEE RAISE: Lying on the back with knees bent, raise one knee to your chest, then the other. Hold both knees against the chest 10 seconds, then lower one knee at a time. Repeat 10 times, twice daily. PARTIAL TRUNK RAISE: Lie face down, arms at your sides. Keeping your waist on the floor, use your arms raise your chest up. Support yourself on your elbows for 30 seconds. Repeat twice daily, increasing the time to two minutes as you recover. Ibuprofen Ibuprofen is an excellent, safe drug for pain control. In addition, it has potent antiinflammatory effects which are beneficial, especially in the treatment of injuries, arthritis, or tendonitis. It's best to take ibuprofen with food. Persons with ulcer disease or allergy to aspirin should notify their physician of this before taking ibuprofen. Take the medication exactly as prescribed. Don't take additional doses unless instructed to do so by your doctor. If you develop wheezing, shortness of breath, hives, faintness, stomach pain, vomiting, or dark black stools, return for re-evaluation at once. I have placed a Lidoderm patch on your back. If this helps your pain you can get [id number] Lidoderm patches or Aspercreme lidocaine for your back pain. You need to remove this patch in 12 hours please Have discussed your x-rays to your hip and your low back which shows no acute changes. I have given you a written report of these to follow-up with your primary doctor. FOLLOW-UP CARE: If you have been referred to a physician for follow-up care, call the physicians office for an appointment as you were instructed or within the next two days. If you experience worsening or a significant change in your symptoms, notify the physician immediately or return to the Emergency Department at any time for re-evaluation. Prescriptions: Cyclobenzaprine HCl [Flexeril 10 mg Tablet] 10 mg PO TIDP PRN #15 tab PRN Reason: Forms: Smoking Cessation Education, Return to Work Referrals: ZAN JOHNSON MD [Primary Care Provider] - Follow up in 3-5 days [facility] [Provider Group] - Follow up as needed
== END 2018-11-04 18:03 | disposition home or self-care (01) ==
LOC: ER 14:22
DX: M54.5 Low back pain (principal); R10.2 Pelvic and perineal pain; M25.571 Pain in right ankle and joints of right foot; M25.551 Pain in right hip; W19.XXXA Unspecified fall, initial encounter; Y92.009 Unspecified place in unspecified non-institutional (private) residence as the place of occurrence of the external cause; G89.29 Other chronic pain; F17.210 Nicotine dependence, cigarettes, uncomplicated; Z71.6 Tobacco abuse counseling; I10 Essential (primary) hypertension; J45.909 Unspecified asthma, uncomplicated; Z88.1 Allergy status to other antibiotic agents; Z88.0 Allergy status to penicillin; Z91.048 Other nonmedicinal substance allergy status
CPT/HCPCS: 99406; 99283; 96372; 73502; 72110; J1885

== ENCOUNTER 2019-02-18 12:42 | Emergency (ER) | payer MEDICARE, MEDICAID ==
[2019-02-18 14:29] LABS: ABSOLUTE EOSINOPHILS # (AUTO) 0.1 10^3/uL (0.0-0.6); ABSOLUTE LYMPHOCYTES (AUTO) 1.8 10^3/uL (0.5-4.7); ABSOLUTE MONOCYTES (AUTO) 0.4 10^3/uL (0.1-1.4); BASOPHILS % (AUTO) 0.9 % (0-2); EOSINOPHILS % (AUTO) 1.2 % (0-6); HEMATOCRIT 43.1 % (36.0-47.0); HEMOGLOBIN 14.7 g/dL (12.0-15.5); LYMPHOCYTES % (AUTO) 33.8 % (13-45); MEAN CORPUSCULAR HEMOGLOBIN 30.5 pg (27.0-33.4); MEAN CORPUSCULAR HGB CONC 34.1 g/dL (32.0-36.0); MEAN CORPUSCULAR VOLUME 89 fl (80-97); MONOCYTES % (AUTO) 6.7 % (3-13); PLATELET COUNT 252 10^3/uL (150-450); RED BLOOD COUNT 4.82 10^6/uL (3.72-5.28); RED CELL DISTRIBUTION WIDTH 12.9 % (11.5-14.0); SEGMENTED NEUTROPHILS % (AUTO) 57.4 % (42-78); TOTAL CELLS COUNTED % (AUTO) 100 %; WHITE BLOOD COUNT 5.2 10^3/uL (4.0-10.5)
[2019-02-18 14:48] LABS: ALANINE AMINOTRANSFERASE 26 U/L (9-52); ALBUMIN 4.1 g/dL (3.5-5.0); ALKALINE PHOSPHATASE 65 U/L (38-126); ANION GAP 8 (5-19); ASPARTATE AMINO TRANSFERASE 22 U/L (14-36); BILIRUBIN,DIRECT 0.2 mg/dL (0.0-0.4); BILIRUBIN,TOTAL 0.5 mg/dL (0.2-1.3); BLOOD UREA NITROGEN 11 mg/dL (7-20); CALCIUM 10.2 mg/dL (8.4-10.2); CARBON DIOXIDE 29 mmol/L (22-30); CHLORIDE 101 mmol/L (98-107); GLUCOSE 90 mg/dL (75-110); POTASSIUM 4.2 mmol/L (3.6-5.0); TOTAL PROTEIN 6.6 g/dL (6.3-8.2)
[2019-02-18] MEDS ORDERED: KETOROLAC TROMETHAMINE INJ/PF 30 MG/1 ML SDV IV ONE (15:28)
--- NOTE | 2019-02-18 16:49 | RADIOLOGY REPORT (SQ) ---
EXAM DESCRIPTION: CT ABD/PELVIS WITH IV ORAL COMPLETED DATE/TIME: 02/18/2019 4:34 pm REASON FOR STUDY: pain, h/o hernis and lap banding COMPARISON: 10/25/2018 TECHNIQUE: CT scan of the abdomen and pelvis performed using helical scanning technique with dynamic intravenous contrast injection. No oral contrast. Images reviewed with lung, soft tissue, and bone w indows. Reconstructed coronal and sagittal MPR images reviewed. Delayed images for evaluation of the urinary system also acquired. All images stored on PACS. All CT scanners at this facility use dose modulation, iterative reconstruction, and/or weight based d osing when appropriate to reduce radiation dose to as low as reasonably achievable (ALARA). [facility]: Dose Right [facility]: CareDose [facility]: Dose Right [facility]: Teradose 4D [facility]: [employer] Systems CONTRAST TYPE AND DOSE: contrast/concentration: Isovue 350.00 mg/ml; Total Contrast Delivered: 86.0 ml; Total Saline Delivered: 46.0 ml RENAL FUNCTION: GFR > 60. RADIATION DOSE: CT Rad equipment meets quality standard of care and radiation dose reduction techniq ues were employed. CTDIvol: 10.1 - 14.2 mGy. DLP: 1312 mGy-cm.. LIMITATIONS: None. FINDINGS: LOWER CHEST: No significant findings. LIVER: Normal size. No enhancing masses. No dilated ducts. SPLEEN: Normal size. No focal lesions. PANCREAS: No masses identified. No significant calcifications. No adjacent inflammation or peripancre atic fluid collections. Pancreatic duct not dilated. GALLBLADDER: Surgically absent. ADRENAL GLANDS: No significant masses. RIGHT KIDNEY AND URETER: No cysts identified. No solid masses identified. No calcified stones. No hyd ronephrosis or hydroureter. LEFT KIDNEY AND URETER: No cysts identified. No solid masses identified. No calcified stones. No hydr onephrosis or hydroureter. AORTA AND VESSELS: No aneurysm. No dissection. Renal arteries, SMA, celiac without significant stenos is. RETROPERITONEUM: No bulky retroperitoneal adenopathy. BOWEL AND PERITONEAL CAVITY: No obstruction or inflammatory changes. No free fluid. APPENDIX: Surgically absent. PELVIS: No mass. No free fluid. Unremarkable bladder. ABDOMINAL WALL: No masses. No hernias. BONES: No acute findings. OTHER: Band procedure. Tubing and right lower quadrant hardware appear unremarkable. IMPRESSION: NO ACUTE FINDINGS IN THE ABDOMEN OR PELVIS ON CT SCAN WITH IV CONTRAST. TECHNICAL DOCUMENTATION: JOB ID: [id number] Quality ID # [id number]: Final reports with documentation of one or more dose reduction techniques (e.g., Au tomated exposure control, adjustment of the mA and/or kV according to patient size, use of iterative reconstruction technique) 2010 [employer]- All Rights Reserved Reading location - IP/workstation name: [email or web address]
[2019-02-18 19:02] VITALS: BP 116/64
--- NOTE | 2019-02-18 19:52 | ER Document Report ---
Entered by ZENA BERGER SCRIBE 02/18/19 1346 Acting as scribe for:ZULEYKA VALDEZ DO ED General - General Chief Complaint: Abdominal Pain Stated Complaint: ABDOMINAL PAIN Time Seen by Provider: 02/18/19 13:21 Primary Care Provider: ZAN JOHNSON MD [Primary Care Provider] - Follow up as needed Notes: Patient is a 59-year-old female with a history of lap banding presenting to the emergency department complaining of abdominal pain. 4 years ago patient had an incisional hernia with multiple revisions and mesh at [place]. Patient states that the other day on 02/14 she attempted to lift a picture up standing on her couch to hang it, she felt a "tear" and then dropped the picture and got down. She then tried to separate 2 shopping carts today and felt another tear in her abdomen. Patient is afraid that she has torn her hernia as she is now having tearing pain in her abdominal musculature and feels like her abdomen is swelling. Denies any current vomiting or change in her bowel habits. Admits intermittent diarrhea and constipation. TRAVEL OUTSIDE OF THE [place] IN LAST 30 DAYS: No - Related Data Allergies/Adverse Reactions: nitrofurantoin [From Macrobid] Allergy (Verified 02/18/19 12:44) Anxiety Penicillins Allergy (Verified 02/18/19 12:44) TAPE Allergy (Uncoded 02/18/19 12:44) RASH Past Medical History - General Information source: Patient - Social History Smoking Status: Current Every Day Smoker Cigarette use (# per day): Yes Chew tobacco use (# tins/day): No Frequency of alcohol use: Rare Drug Abuse: None Family History: Reviewed & Not Pertinent Patient has suicidal ideation: No Patient has homicidal ideation: No - Past Medical History Cardiac Medical History: Reports: Hx Hypertension Pulmonary Medical History: Reports: Hx Asthma Neurological Medical History: Reports: Hx Migraine, Hx Seizures - POST THIRD 1980S, FROM [place] Musculoskeletal Medical History: Reports Hx Arthritis, Reports Hx Musculoskeletal Deformity Psychiatric Medical History: Reports: Hx Anxiety, Hx Depression Past Surgical History: Reports: Hx Abdominal Surgery - hiatal hernia lap band, abdominal hernia repair, Hx Adenoidectomy, Hx Appendectomy, Hx Cholecystectomy, Hx Tonsillectomy, Hx Tubal Ligation - Immunizations Immunizations up to date: Yes Hx Diphtheria, Pertussis, Tetanus Vaccination: Yes Review of Systems - Review of Systems Constitutional: No symptoms reported EENT: No symptoms reported Cardiovascular: No symptoms reported Respiratory: No symptoms reported Gastrointestinal: See HPI, Abdominal pain, Diarrhea. denies: Blood streaked bowels Genitourinary: No symptoms reported Female Genitourinary: No symptoms reported Musculoskeletal: No symptoms reported Skin: No symptoms reported Hematologic/Lymphatic: No symptoms reported Neurological/Psychological: No symptoms reported -: Yes All other systems reviewed and negative Physical Exam - Vital signs Vitals: Temp Pulse Resp BP Pulse Ox 98.4 F 78 16 127/80 H 97 02/18/19 12:48 02/18/19 12:48 02/18/19 12:48 02/18/19 12:48 02/18/19 12:48 - Notes Notes: PHYSICAL EXAM GENERAL: Alert, interacts well. No acute distress. HEAD: Normocephalic, atraumatic. EYES: Pupils equal, round, and reactive to light. Extraocular movements intact. ENT: Oral mucosa moist, tongue midline. NECK: Full range of motion. Supple. Trachea midline. LUNGS: Clear to auscultation bilaterally, no wheezes, rales, or rhonchi. No respiratory distress. HEART: Regular rate and rhythm. No murmurs, gallops, or rubs. ABDOMEN: Hard mechanical feeling 2 cm mass in the left upper quadrant that is nontender. Bulge in the midline of the upper abdomen consistent with diastasis rectus when she tries to sit up. Non-distended. Bowel sounds present in all 4 quadrants. No guarding, rigidity, or rebound. No irreducible herniated palpated EXTREMITIES: Moves all 4 extremities spontaneously. No edema, No cyanosis. NEUROLOGICAL: Alert and oriented x3. Normal speech. Biceps and patellar DTRs 2+ bilaterally. PSYCH: Normal affect, normal mood. SKIN: Warm, dry, normal turgor. No rashes or lesions noted. Course - Re-evaluation Re-evalutation: 02/18/19 18:35 CBC unremarkable, CMP unremarkable, CT scan of the abdomen pelvis does not show any acute process, LAP-BAND is in good position. Patient's physical exam is concerning for weakening of the abdominal muscles or new hernia, but there is no evidence of incarceration or strangulation. Patient currently appears to have an abdominal muscle strain, will be referred back to her primary surgeon, already has an appointment on . Discharged home. - Vital Signs Vital signs: Temp Pulse Resp BP Pulse Ox 97.6 F 52 L 16 116/64 98 02/18/19 18:56 02/18/19 18:56 02/18/19 18:56 02/18/19 18:56 02/18/19 18:56 - Laboratory Result Diagrams: 02/18/19 14:08 02/18/19 14:08 Discharge - Discharge Clinical Impression: Abdominal muscle strain Qualifiers: Encounter type: initial encounter Qualified Code(s): S39.011A - Strain of mus casi, fascia and tendon of abdomen, initial encounter Condition: Stable Disposition: HOME, SELF-CARE Additional Instructions: You appear to have strained your abdominal muscles. There is no evidence of hernia on your CAT scan today. This simply means that there is not currently any intestine or fat protruding through your abdominal muscles, when you stand up the bulging is consistent with possible hernia. It is very important that you follow-up with your primary care physician and your surgeon to see if they want to do any other surgeries to repair the muscles or if they want you to use abdominal binders for support and physical therapy instead. Do not lift anything heavier than 5 pounds until you follow-up with your surgeon. Referrals: ZAN JOHNSON MD [Primary Care Provider] - Follow up as needed I personally performed the services described in the documentation, reviewed and edited the documentation which was dictated to the scribe in my presence, and it accurately records my words and actions.
== END 2019-02-18 19:55 | disposition home or self-care (01) ==
LOC: ER 12:42
DX: S39.011A Strain of muscle, fascia and tendon of abdomen, initial encounter (principal); R10.9 Unspecified abdominal pain; X50.0XXA Overexertion from strenuous movement or load, initial encounter; R19.7 Diarrhea, unspecified; K59.00 Constipation, unspecified; F17.210 Nicotine dependence, cigarettes, uncomplicated; I10 Essential (primary) hypertension; Z90.49 Acquired absence of other specified parts of digestive tract; Z98.84 Bariatric surgery status; Z98.51 Tubal ligation status; Z88.0 Allergy status to penicillin
CPT/HCPCS: 99284; 96374; 36415; 85025; 80053; 74177; J1885

== ENCOUNTER 2020-01-02 17:30 | Observation (INO) | payer MEDICARE, MEDICAID ==
[2020-01-02] MEDS ORDERED: ASPIRIN 81 MG TABLET, CHEWABLE PO ONE (17:54)
--- NOTE | 2020-01-02 17:54 | ER Document Report ---
ED Medical Screen (RME) - General Chief Complaint: Chest Pain Stated Complaint: CHEST PAIN Time Seen by Provider: 01/02/20 17:52 Primary Care Provider: ZAN JOHNSON MD [Primary Care Provider] - Follow up as needed Information source: Patient TRAVEL OUTSIDE OF THE [place] IN LAST 30 DAYS: No - HPI Onset: Just prior to arrival Onset/Duration: Intermittent, Persistent, Waxing and waning Context: This is a's 59-year-old female presented to the emergency room today with intermittent chest pain and pressure to her chest over the last 6 weeks. I greeted and performed a rapid initial assessment of this patient. Comprehensive ED assessment and evaluation of the patient, analysis of test results and completion of the medical decision making process will be conducted by additional ED providers. 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 Denies: Hx Cerebrovascular Accident Renal/ Medical History: Denies: Hx Kidney Stones, Hx Peritoneal Dialysis Musculoskeltal Medical History: Reports Hx Arthritis, Reports Hx Musculoskeletal Deformity Psychiatric Medical History: Reports: Hx Anxiety, Hx Depression Past Surgical History: Reports: Hx Abdominal Surgery - hiatal hernia lap band, abdominal hernia repair, Hx Adenoidectomy, Hx Appendectomy, Hx Cholecystectomy, Hx Tonsillectomy, Hx Tubal Ligation - Immunizations Immunizations up to date: Yes Hx Diphtheria, Pertussis, Tetanus Vaccination: Yes Physical Exam - Vital signs Vitals: Temp Pulse Resp BP Pulse Ox 98.6 F 69 16 119/81 96 01/02/20 17:43 01/02/20 17:43 01/02/20 17:43 01/02/20 17:43 01/02/20 17:43 Course - Vital Signs Vital signs: Temp Pulse Resp BP Pulse Ox 98.6 F 69 16 119/81 96 01/02/20 17:43 01/02/20 17:43 01/02/20 17:43 01/02/20 17:43 01/02/20 17:43 Doctor's Discharge - Discharge Referrals: ZAN JOHNSON MD [Primary Care Provider] - Follow up as needed
[2020-01-02 18:25] LABS: ABSOLUTE BASOPHILS # (AUTO) 0.1 10^3/uL (0.0-0.2); ABSOLUTE EOSINOPHILS # (AUTO) 0.1 10^3/uL (0.0-0.6); ABSOLUTE LYMPHOCYTES (AUTO) 2.2 10^3/uL (0.5-4.7); ABSOLUTE MONOCYTES (AUTO) 0.5 10^3/uL (0.1-1.4); ABSOLUTE NEUT (AUTO) 3.2 10^3/uL (1.7-8.2); BASOPHILS % (AUTO) 1.4 % (0-2); EOSINOPHILS % (AUTO) 2.4 % (0-6); HEMOGLOBIN 14.9 g/dL (12.0-15.5); LYMPHOCYTES % (AUTO) 35.5 % (13-45); MEAN CORPUSCULAR HEMOGLOBIN 31.1 pg (27.0-33.4); MEAN CORPUSCULAR HGB CONC 34.6 g/dL (32.0-36.0); MEAN CORPUSCULAR VOLUME 90 fl (80-97); MONOCYTES % (AUTO) 8.1 % (3-13); PLATELET COUNT 262 10^3/uL (150-450); RED BLOOD COUNT 4.78 10^6/uL (3.72-5.28); RED CELL DISTRIBUTION WIDTH 13.5 % (11.5-14.0); SEGMENTED NEUTROPHILS % (AUTO) 52.6 % (42-78); TOTAL CELLS COUNTED % (AUTO) 100 %; WHITE BLOOD COUNT 6.1 10^3/uL (4.0-10.5)
[2020-01-02 18:33] LABS: APPEARANCE,URINE CLEAR; BILIRUBIN,URINE NEGATIVE (NEGATIVE); COLOR,URINE YELLOW; GLUCOSE, URINE NEGATIVE (NEGATIVE); KETONES,URINE NEGATIVE (NEGATIVE); LEUKOCYTE ESTERASE,URINE NEGATIVE (NEGATIVE); NITRITE,URINE NEGATIVE (NEGATIVE); PROTEIN,URINE NEGATIVE (NEGATIVE); URINE SPECIFIC GRAVITY 1.028
[2020-01-02 18:45] LABS: ALBUMIN 4.4 g/dL (3.5-5.0); ALKALINE PHOSPHATASE 66 U/L (38-126); ANION GAP 8 (5-19); ASPARTATE AMINO TRANSFERASE 25 U/L (14-36); BILIRUBIN,TOTAL 0.3 mg/dL (0.2-1.3); BLOOD UREA NITROGEN 18 mg/dL (7-20); CALCIUM 10.9 mg/dL (8.4-10.2); CARBON DIOXIDE 25 mmol/L (22-30); CHLORIDE 102 mmol/L (98-107); GLUCOSE 107 mg/dL (75-110); POTASSIUM 4.3 mmol/L (3.6-5.0); TOTAL PROTEIN 7.3 g/dL (6.3-8.2)
--- NOTE | 2020-01-02 18:52 | RADIOLOGY REPORT (SQ) ---
EXAM DESCRIPTION: CHEST 2 VIEWS IMAGES COMPLETED DATE/TIME: 01/02/2020 6:32 pm REASON FOR STUDY: cp COMPARISON: 10/08/2016 EXAM PARAMETERS: NUMBER OF VIEWS: two views TECHNIQUE: Digital Frontal and Lateral radiographic views of the chest acquired. RADIATION DOSE: NA LIMITATIONS: none FINDINGS: LUNGS AND PLEURA: No opacities, masses or pneumothorax. No pleural effusion. MEDIASTINUM AND HILAR STRUCTURES: No masses or contour abnormalities. HEART AND VASCULAR STRUCTURES: Heart normal size. No evidence for failure. BONES: No acute findings. HARDWARE: None in the chest. OTHER: No other significant finding. IMPRESSION: NO ACUTE RADIOGRAPHIC FINDING IN THE CHEST. TECHNICAL DOCUMENTATION: JOB ID: [id number] 2010 [employer]- All Rights Reserved Reading location - IP/workstation name: [email or web address]
--- NOTE | 2020-01-02 19:34 | ER Document Report ---
ED General - General Chief Complaint: Chest Pain Stated Complaint: CHEST PAIN Time Seen by Provider: 01/02/20 17:52 Primary Care Provider: ZAN JOHNSON MD [Primary Care Provider] - Follow up as needed TRAVEL OUTSIDE OF THE [place] IN LAST 30 DAYS: No - HPI Notes: Chief complaint: Chest pain HPI: 59-year-old female sent from office by Dr. Johnson with abnormal EKG and complaint of intermittent chest pain for the last 6 weeks. No known prior history of coronary disease. Says she had a negative treadmill test over 5 years ago. Family history is positive for CAD. Other positive risk factors for this patient include hypertension and cigarette smoking. She is not diabetic. She has no known history of hyperlipidemia. She denies any history of illicit drug use. Patient says the abnormal sensation occurs in the center of her chest and is described as a vague tightness and slight dyspnea. This occurs mostly during times of anxiety and is not clearly related to exertion. The pain is nonradiating. There is no associated nausea, vomiting or diaphoresis. She has not taken any medication for relief of the symptoms other than some lorazepam. She does have a history of panic attacks but says she perceives this to be "different". She denies any known history of thromboembolic disease. HEART Score: HISTORY 1 ECG 1 AGE 1 RISK FACTORS 2 TROPONIN 0 TOTAL: 5 If HEART score is = 3 AND both tronponin measurments are normal, the 30 day risk of a major adverse cardiac event (all-cause mortality, myocardia infarction or need for coronary revscularization) is < 1% (Sensitivity 100%, NPV 100%). PERC SCORE (HADCLOTS) H no hormone administration A Age>50 D NO DVT/PE previously C Coughing up blood L no leg swelling unilaterally O O2 sat greater than 95% T no tachycardia S no surgery/Trauma recently - Related Data Allergies/Adverse Reactions: nitrofurantoin [From Macrobid] Allergy (Verified 02/18/19 12:44) Anxiety Penicillins Allergy (Verified 02/18/19 12:44) TAPE Allergy (Uncoded 02/18/19 12:44) RASH Past Medical History - General Information source: Patient, [facility] Records - Social History Smoking Status: Current Every Day Smoker Frequency of alcohol use: Rare Drug Abuse: None Lives with: Family - Chest significant Family History: Reviewed & Not Pertinent Patient has homicidal ideation: No - Past Medical History Cardiac Medical History: Reports: Hx Hypertension Denies: Hx Coronary Artery Disease, Hx Heart Attack Pulmonary Medical History: Reports: Hx Asthma Denies: Hx Bronchitis, Hx COPD, Hx Pneumonia Neurological Medical History: Reports: Hx Migraine, Hx Seizures - POST 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 Denies: Hx Cerebrovascular Accident Renal/ Medical History: Denies: Hx Kidney Stones, Hx Peritoneal Dialysis Musculoskeletal Medical History: Reports Hx Arthritis, Reports Hx Mus culoskeletal Deformity Psychiatric Medical History: Reports: Hx Anxiety, Hx Depression Past Surgical History: Reports: Hx Abdominal Surgery - hiatal hernia lap band, abdominal hernia repair, Hx Adenoidectomy, Hx Appendectomy, Hx Cholecystectomy, Hx Tonsillectomy, Hx Tubal Ligation - Immunizations Immunizations up to date: Yes Hx Diphtheria, Pertussis, Tetanus Vaccination: Yes Review of Systems - Review of Systems Notes: Constitutional: Negative for fever. HENT: Negative for sore throat. Eyes: Negative for visual changes. Cardiovascular: As per HPI. Respiratory: As per HPI. Gastrointestinal: Negative for abdominal pain, vomiting or diarrhea. Genitourinary: Negative for dysuria. Musculoskeletal: Negative for back pain. Skin: Negative for rash. Neurological: Negative for headaches, weakness or numbness. 10 point ROS negative except as marked above and in HPI. Physical Exam - Vital signs Vitals: Temp Pulse Resp BP Pulse Ox 98.6 F 69 16 119/81 96 01/02/20 17:43 01/02/20 17:43 01/02/20 17:43 01/02/20 17:43 01/02/20 17:43 - Notes Notes: GENERAL: Well-developed well-nourished female approximately stated age appearing in no acute distress. SKIN: Good turgor no rashes. HEAD: Normocephalic atraumatic. EYES: PERRLA. EOMI. Conjunctivae and sclerae clear. EARS: CANALS AND TMS CLEAR. NOSE: CLEAR. MOUTH: Moist mucosa. Good dentition. No stridor or edema. No drooling. NECK: Supple. No masses or thyromegaly. No adenopathy. Carotids 2+ without bruits. No JVD. BACK: Symmetrical without tenderness. CHEST: Respirations unlabored. Breath sounds clear and symmetrical. HEART: Regular rhythm. No murmur gallop or rub. ABDOMEN: Soft nontender without masses, organomegaly or rebound. Bowel sounds normally active. No bruits. GENITALIA: Deferred. EXTREMITIES: Mild degenerative changes of interphalangeal joints both hands. No edema. No calf tenderness. Cap refill less than 1.5 seconds. Dorsalis pedis and posterior tibial pulses 3+ and symmetrical. NEUROLOGICAL: GCS 15. Alert and oriented x3. Normal gait. Fluent speech. Cranial nerves II through XII intact. Sensorimotor and cerebellar normal. Normal tone. PSYCHIATRIC: Appropriate affect. Course - Re-evaluation Re-evalutation: 01/02/20 20:18 Patient has remained free of chest pain since arrival here. Her EKG showed nonspecific changes only. Her first troponin was normal. D-dimer is negative. Heart score is 5. Clinical findings have been discussed with Dr. Duong covering for Dr. Johnson. He requests observation admission on telemetry. This is discussed with the patient and she is agreeable. - Vital Signs Vital signs: Temp Pulse Resp BP Pulse Ox 98.6 F 69 16 119/81 96 01/02/20 17:48 01/02/20 17:43 01/02/20 17:43 01/02/20 17:43 01/02/20 17:43 - Laboratory Result Diagrams: 01/02/20 18:08 01/02/20 18:08 Laboratory results interpreted by me: 01/02/20 01/02/20 18:08 18:08 Sodium 135.1 L Calcium 10.9 H Urine Urobilinogen 2.0 H - EKG Interpretation by Me Additional EKG results interpreted by me: 01/02/20 19:37 EKG from 1739 hrs. is reviewed contemporaneously by me demonstrating a normal sinus rhythm with a rate of 56. There is a left axis deviation with QRS of -44 degrees. Nonspecific T wave abnormalities are noted in anterior leads. No acute ST shift. Intervals are normal. There are no old tracings immediately available for direct comparison. Discharge - Discharge Clinical Impression: Chest pain Qualifiers: Chest pain type: unspecified Qualified Code(s): R07.9 - Chest pain, unspecified Condition: Stable Disposition: ADMITTED OBSERVATION Admitting Provider: Rhoda Unit Admitted: Telemetry Referrals: ZAN JOHNSON MD [Primary Care Provider] - Follow up as needed
[2020-01-02] MEDS ORDERED: LORAZEPAM 1 MG TABLET PO PRN (23:04)
[2020-01-02] MEDS ORDERED: LISINOPRIL 10 MG TABLET PO ONE (23:15)
[2020-01-02] MEDS ORDERED: HYDROCHLOROTHIAZIDE 12.5 MG TABLET PO ONE (23:15)
[2020-01-03 04:50] LABS: CREATINE KINASE MB < 0.22 ng/mL (<4.55); TROPONIN I < 0.012 ng/mL
[2020-01-03 10:14] LABS: CREATINE KINASE MB < 0.22 ng/mL (<4.55); TROPONIN I < 0.012 ng/mL
--- NOTE | 2020-01-03 14:07 | PDOC H&P ---
History of Present Illness Admission Date/PCP: 01/02/20 20:48 ZAN JOHNSON MD Patient complains of: Chest pain History of Present Illness: HOLLI GODOY is a 59 year old female patient of Dr. Johnson who presented to the ED on 01/02/2020 with complian of chest waters over preceding six moths. She localized pain to sternal region described as tightness, non radiating, and with slight dyspnea. She denied any associated palpitation, diaphoresis, nausea or vomiting. She denied any dizziness or headache. She denied cigarette smoking, alcohol abuse or illicit drug usage. There is history of hypertension and panic attacks. Her symptom is not effort related and mostly occur with her panic attack episodes. She was advised hospitalization on observation bed for further evaluation and management since she reported normal treadmill evaluation about 5 years ago. Past Medical History Cardiac Medical History: Reports: Hypertension Denies: Coronary Artery Disease, Myocardial Infarction Pulmonary Medical History: Reports: Asthma Denies: Bronchitis, Chronic Obstructive Pulmonary Disease (COPD), Pneumonia Neurological Medical History: Reports: Migraine, Seizures - POST THIRD , FROM TOXEMIA Musculoskeltal Medical History: Reports: Arthritis Psychiatric Medical History: Reports: Depression Hematology: Reports: Anemia - DURING ONLY Past Surgical History Past Surgical History: Reports: Adenoidectomy, Appendectomy, Cholecystectomy, Tonsillectomy, Tubal Ligation Social History Lives with: Family - Chest significant Smoking Status: Current Every Day Smoker Electronic Cigarette use?: No Frequency of Alcohol Use: Occasional Hx Recreational Drug Use: No Drugs: None Hx Prescription Drug Abuse: No Family History Family History: Reviewed & Not Pertinent Parental Family History Reviewed: Yes Children Family History Reviewed: Yes Sibling(s) Family History Reviewed.: Yes Medication/Allergy Home Medications: Lisinopril/Hydrochlorothiazide [Lisinopril-Hctz 20-12.5 mg Tab] 0.5 tab PO QHS 08/31/17 Lorazepam 1 mg PO DAILY PRN 08/31/17 Allergies/Adverse Reactions: nitrofurantoin [From Macrobid] Allergy (Verified 02/18/19 12:44) Anxiety Penicillins Allergy (Verified 02/18/19 12:44) TAPE Allergy (Uncoded 02/18/19 12:44) RASH Review of Systems Constitutional: ABSENT: chills, fever(s), headache(s), weight gain, weight loss Eyes: ABSENT: visual disturbances Ears: ABSENT: hearing changes Cardiovascular: PRESENT: chest pain. ABSENT: dyspnea on exertion, edema, orthropnea, palpitations Respiratory: ABSENT: cough, hemoptysis Gastrointestinal: ABSENT: abdominal pain, constipation, diarrhea, hematemesis, hematochezia, nausea, vomiting Genitourinary: ABSENT: dysuria, hematuria Musculoskeletal: ABSENT: joint swelling Integumentary: ABSENT: rash, wounds Neurological: ABSENT: abnormal gait, abnormal speech, confusion, dizziness, focal weakness, syncope Psychiatric: ABSENT: anxiety, depression, homidical ideation, suicidal ideation Endocrine: ABSENT: cold intolerance, heat intolerance, menstrual abnormalities, polydipsia, polyuria Hematologic/Lymphatic: ABSENT: easy bleeding, easy bruising, lymphadenopathy Physical Exam Vital Signs: Temp Pulse Resp BP Pulse Ox 98.2 F 57 L 20 94/58 L 96 01/03/20 11:50 01/03/20 11:50 01/03/20 11:50 01/03/20 11:50 01/03/20 11:50 Intake & Output 01/02/20 01/03/20 01/04/20 06:59 06:59 06:59 Intake Total 950 Balance 950 Weight 76.5 kg General appearance: PRESENT: no acute distress, well-developed, well-nourished Head exam: PRESENT: atraumatic, normocephalic Eye exam: PRESENT: conjunctiva pink, EOMI, PERRLA. ABSENT: scleral icterus Ear exam: PRESENT: normal external ear exam Mouth exam: PRESENT: moist, tongue midline Neck exam: PRESENT: full ROM. ABSENT: carotid bruit, JVD, lymphadenopathy, thyromegaly Respiratory exam: PRESENT: clear to auscultation kevin Cardiovascular exam: PRESENT: RRR, +S1, +S2. ABSENT: diastolic murmur, rubs, systolic murmur Pulses: PRESENT: normal dorsalis pedis pul, +2 pedal pulses bilateral Vascular exam: PRESENT: normal capillary refill GI/Abdominal exam: PRESENT: normal bowel sounds, soft. ABSENT: distended, guarding, mass, organolmegaly, rebound, tenderness Rectal exam: PRESENT: deferred Extremities exam: ABSENT: pedal edema Neurological exam: PRESENT: alert, awake, oriented to person, oriented to place, oriented to time, oriented to situation, CN II-XII grossly intact. ABSENT: motor sensory deficit Psychiatric exam: PRESENT: appropriate affect, normal mood. ABSENT: homicidal ideation, suicidal ideation Skin exam: PRESENT: dry, intact, warm. ABSENT: cyanosis, rash Results Laboratory Results: 01/02/20 18:08 01/02/20 18:08 01/02/20 01/02/20 01/02/20 18:08 18:08 18:08 WBC 6.1 RBC 4.78 Hgb 14.9 Hct 43.0 MCV 90 MCH 31.1 MCHC 34.6 RDW 13.5 Plt Count 262 Seg Neutrophils % 52.6 Sodium 135.1 L Potassium 4.3 Chloride 102 Carbon Dioxide 25 Anion Gap 8 BUN 18 Creatinine 0.81 Est GFR ( Amer) > 60 Glucose 107 Calcium 10.9 H Total Bilirubin 0.3 AST 25 Alkaline Phosphatase 66 Total Protein 7.3 Albumin 4.4 Urine Color YELLOW Urine Appearance CLEAR Urine pH 5.0 Ur Specific [place] 1.028 Urine Protein NEGATIVE Urine Glucose (UA) NEGATIVE Urine Ketones NEGATIVE Urine Blood NEGATIVE Urine Nitrite NEGATIVE Ur Leukocyte Esterase NEGATIVE Urine WBC (Auto) 1 Urine RBC (Auto) 0 01/02/20 01/02/20 01/03/20 18:08 21:30 03:46 Creatine Kinase 32 CK-MB (CK-2) Troponin I < 0.012 < 0.012 01/03/20 01/03/20 01/03/20 03:46 09:28 09:28 Creatine Kinase 34 CK-MB (CK-2) < 0.22 < 0.22 Troponin I < 0.012 < 0.012 Impressions: Chest X-Ray 01/02/20 17:54 IMPRESSION: NO ACUTE RADIOGRAPHIC FINDING IN THE CHEST. Assessment & Plan - Diagnosis (1) Hyponatremia Is this a current diagnosis for this admission?: Yes Plan: See covering admitting attending physician orders for details. (2) Chest pain Qualifiers: Chest pain type: unspecified Qualified Code(s): R07.9 - Chest pain, unspecified Is this a current diagnosis for this admission?: Yes Plan: See covering admitting attending physician orders for details. (3) Hypercalcemia Is this a current diagnosis for this admission?: Yes Plan: See covering admitting attending physician orders for details. (4) HTN (hypertension) Is this a current diagnosis for this admission?: Yes Plan: See covering admitting attending physician orders for details. (5) Panic attack Is this a current diagnosis for this admission?: Yes Plan: See covering admitting attending physician orders for details. - Time Time Spent: 50 to 70 Minutes Medications reviewed and adjusted accordingly: Yes Anticipated discharge: Home Within: within 24 hours - Plan Summary Plan Summary: See covering admitting attending physician orders for details.
[2020-01-03 14:50] LABS: BLOOD UREA NITROGEN 17 mg/dL (7-20); CALCIUM 9.9 mg/dL (8.4-10.2); CHLORIDE 105 mmol/L (98-107); GLUCOSE 102 mg/dL (75-110); POTASSIUM 4.1 mmol/L (3.6-5.0)
[2020-01-03 14:55] LABS: CARBON DIOXIDE 27 mmol/L (22-30)
[2020-01-03 14:56] LABS: ANION GAP 4 (5-19)
[2020-01-03 15:07] LABS: CREATINE KINASE MB < 0.22 ng/mL (<4.55); TROPONIN I < 0.012 ng/mL
--- NOTE | 2020-01-03 15:15 | PDOC DISCHARGE SUMMARY ---
Impression - Admit/DC Date/PCP Admission Date/Primary Care Provider: 01/02/20 20:48 ZAN JOHNSON MD Discharge Date: 01/03/20 - Discharge Diagnosis (1) Hyponatremia Is this a current diagnosis for this admission?: Yes (2) Chest pain Is this a current diagnosis for this admission?: Yes (3) Hypercalcemia Is this a current diagnosis for this admission?: Yes (4) HTN (hypertension) Is this a current diagnosis for this admission?: Yes (5) Panic attack Is this a current diagnosis for this admission?: Yes - Assessment Summary: Patient was admitted for chest pain to evaluate possible cardiac origin. Her serial cardiac enzymes were within normal limits. Her chest pain has resolved without any significant other symptoms to suggest cardiac origin. She will be discharged home today. She was instructed to follow up with Dr. Johnson for outpatient exercise stress test as indicated. - Additional Information Resuscitation Status: Full Code Discharge Diet: As Tolerated Discharge Activity: Activity As Tolerated Referrals: ZAN JOHNSON MD [Primary Care Provider] - 01/06/20 9:00 am (call office on 01/05/2020 to confim appointment) Prescriptions: Lorazepam [Ativan 1 mg Tablet] 1 mg PO DAILYP PRN #7 tablet PRN Reason: Lisinopril/Hydrochlorothiazide [Lisinopril-Hctz 20-12.5 mg Tab] 0.5 tab PO QHS #30 Home Medications: Lisinopril/Hydrochlorothiazide [Lisinopril-Hctz 20-12.5 mg Tab] 0.5 tab PO QHS #30 01/03/20 Lorazepam [Ativan 1 mg Tablet] 1 mg PO DAILYP PRN #7 tablet 01/03/20 History of Present Illiness History of Present Illness: HOLLI GODOY is a 59 year old female patient of Dr. Johnson who presented to the ED on 01/02/2020 with complian of chest waters over preceding six moths. She localized pain to sternal region described as tightness, non radiating, and with slight dyspnea. She denied any associated palpitation, diaphoresis, nausea or vomiting. She denied any dizziness or headache. She denied cigarette smoking, alcohol abuse or illicit drug usage. There is history of hypertension and panic attacks. Her symptom is not effort related and mostly occur with her panic attack episodes. She was advised hospitalization on observation bed for further evaluation and management since she reported normal treadmill evaluation about five years ago. Hospital Course Hospital Course: Patient was admitted for chest pain to evaluate possible cardiac origin. Her serial cardiac enzymes were within normal limits. Her chest pain has resolved without any significant other symptoms to suggest cardiac origin. She will be discharged home today. She was instructed to follow up with Dr. Johnson for outpatient exercise stress test as indicated. Physical Exam Vital Signs: Temp Pulse Resp BP Pulse Ox 98.2 F 57 L 20 94/58 L 96 01/03/20 11:50 01/03/20 11:50 01/03/20 11:50 01/03/20 11:50 01/03/20 11:50 Intake & Output 01/02/20 01/03/20 01/04/20 06:59 06:59 06:59 Intake Total 950 Balance 950 Weight 76.5 kg General appearance: PRESENT: no acute distress Head exam: PRESENT: atraumatic, normocephalic Eye exam: PRESENT: conjunctiva pink. ABSENT: scleral icterus Respiratory exam: PRESENT: clear to auscultation kevin Cardiovascular exam: PRESENT: RRR, +S1, +S2. ABSENT: diastolic murmur, rubs, systolic murmur Vascular exam: ABSENT: pallor GI/Abdominal exam: PRESENT: normal bowel sounds, soft. ABSENT: distended, guarding, mass, organolmegaly, rebound, tenderness Extremities exam: ABSENT: pedal edema Neurological exam: PRESENT: alert, awake, oriented to person, oriented to place, oriented to time, oriented to situation, CN II-XII grossly intact. ABSENT: motor sensory deficit Psychiatric exam: PRESENT: appropriate affect, normal mood. ABSENT: homicidal ideation, suicidal ideation Skin exam: PRESENT: dry, warm Results Laboratory Results: WBC 6.1 10^3/uL (4.0-10.5) 01/02/20 18:08 RBC 4.78 10^6/uL (3.72-5.28) 01/02/20 18:08 Hgb 14.9 g/dL (12.0-15.5) 01/02/20 18:08 Hct 43.0 % (36.0-47.0) 01/02/20 18:08 MCV 90 fl (80-97) 01/02/20 18:08 MCH 31.1 pg (27.0-33.4) 01/02/20 18:08 MCHC 34.6 g/dL (32.0-36.0) 01/02/20 18:08 RDW 13.5 % (11.5-14.0) 01/02/20 18:08 Plt Count 262 10^3/uL (150-450) 01/02/20 18:08 Lymph % (Auto) 35.5 % (13-45) 01/02/20 18:08 [place] % (Auto) 8.1 % (3-13) 01/02/20 18:08 Eos % (Auto) 2.4 % (0-6) 01/02/20 18:08 Baso % (Auto) 1.4 % (0-2) 01/02/20 18:08 Absolute Neuts (auto) 3.2 10^3/uL (1.7-8.2) 01/02/20 18:08 Absolute Lymphs (auto) 2.2 10^3/uL (0.5-4.7) 01/02/20 18:08 Absolute Monos (auto) 0.5 10^3/uL (0.1-1.4) 01/02/20 18:08 Absolute Eos (auto) 0.1 10^3/uL (0.0-0.6) 01/02/20 18:08 Absolute Basos (auto) 0.1 10^3/uL (0.0-0.2) 01/02/20 18:08 Seg Neutrophils % 52.6 % (42-78) 01/02/20 18:08 D-Dimer < 0.27 ug/mL (0.00-0.50) 01/02/20 18:08 Sodium 135.5 mmol/L (137-145) L 01/03/20 14:25 Potassium 4.1 mmol/L (3.6-5.0) 01/03/20 14:25 Chloride 105 mmol/L (98-107) 01/03/20 14:25 Carbon Dioxide 27 mmol/L (22-30) 01/03/20 14:25 Anion Gap 4 (5-19) L 01/03/20 14:25 BUN 17 mg/dL (7-20) 01/03/20 14:25 Creatinine 0.75 mg/dL (0.52-1.25) 01/03/20 14:25 Est GFR ( Amer) > 60 (>60) 01/03/20 14:25 Est GFR (MDRD) Non-Af > 60 (>60) 01/03/20 14:25 Glucose 102 mg/dL (75-110) 01/03/20 14:25 Calcium 9.9 mg/dL (8.4-10.2) 01/03/20 14:25 Total Bilirubin 0.3 mg/dL (0.2-1.3) 01/02/20 18:08 Direct Bilirubin 0.0 mg/dL (0.0-0.4) 01/02/20 18:08 Neonat Total Bilirubin Not Reportable 01/02/20 18:08 Neonat Direct Bilirubin Not Reportable 01/02/20 18:08 Neonat Indirect Bili Not Reportable 01/02/20 18:08 AST 25 U/L (14-36) 01/02/20 18:08 ALT 17 U/L (<35) 01/02/20 18:08 Alkaline Phosphatase 66 U/L (38-126) 01/02/20 18:08 Creatine Kinase 32 U/L (30-135) 01/03/20 14:25 CK-MB (CK-2) < 0.22 ng/mL (<4.55) 01/03/20 09:28 Troponin I < 0.012 ng/mL 01/03/20 09:28 Total Protein 7.3 g/dL (6.3-8.2) 01/02/20 18:08 Albumin 4.4 g/dL (3.5-5.0) 01/02/20 18:08 Urine Color YELLOW 01/02/20 18:08 Urine Appearance CLEAR 01/02/20 18:08 Urine pH 5.0 (5.0-9.0) 01/02/20 18:08 Ur Specific [place] 1.028 01/02/20 18:08 Urine Protein NEGATIVE mg/dL (NEGATIVE) 01/02/20 18:08 Urine Glucose (UA) NEGATIVE mg/dL (NEGATIVE) 01/02/20 18:08 Urine Ketones NEGATIVE mg/dL (NEGATIVE) 01/02/20 18:08 Urine Blood NEGATIVE (NEGATIVE) 01/02/20 18:08 Urine Nitrite NEGATIVE (NEGATIVE) 01/02/20 18:08 Urine Bilirubin NEGATIVE (NEGATIVE) 01/02/20 18:08 Urine Urobilinogen 2.0 mg/dL (<2.0) H 01/02/20 18:08 Ur Leukocyte Esterase NEGATIVE (NEGATIVE) 01/02/20 18:08 Urine WBC (Auto) 1 /HPF 01/02/20 18:08 Urine RBC (Auto) 0 /HPF 01/02/20 18:08 Squamous Epi Cells Auto <1 /HPF 01/02/20 18:08 Urine Mucus (Auto) MANY /LPF 01/02/20 18:08 Urine Ascorbic Acid NEGATIVE (NEGATIVE) 01/02/20 18:08 01/02/20 01/02/20 01/03/20 18:08 21:30 03:46 CK-MB (CK-2) < 0.22 Troponin I < 0.012 < 0.012 < 0.012 01/03/20 09:28 CK-MB (CK-2) < 0.22 Troponin I < 0.012 Impressions: Chest X-Ray 01/02/20 17:54 IMPRESSION: NO ACUTE RADIOGRAPHIC FINDING IN THE CHEST. Plan Health Concerns: High utilization for panic relate chest pain / discomfort. Plan of Treatment: Maintain on current medication management Goals: Close monitoring and directed care plan fr manuel thomas. Time Spent: Less than 30 Minutes Stroke Is this a Stroke Patient?: No Acute Heart Failure - Is this a Heart Failure Patient?: No
[2020-01-03 17:13] VITALS: BP 103/63
--- NOTE | 2020-01-03 20:50 | EKG REPORT ---
SEVERITY:- ABNORMAL ECG - SINUS RHYTHM LEFT AXIS DEVIATION NONSPECIFIC T ABNORMALITIES, ANTERIOR LEADS : Confirmed by: Francia Gutiérrez 03-Jan-2020 20:49:21
[2020-01-03] MEDS ORDERED: LISINOPRIL 10 MG TABLET PO SCH (22:00)
[2020-01-03] MEDS ORDERED: HYDROCHLOROTHIAZIDE 12.5 MG TABLET PO SCH (22:00)
== END 2020-01-03 15:59 | disposition home or self-care (01) ==
LOC: ER 17:30 → EH 20:48 → 4S 22:13
PROVIDERS: ADMIT Internal Medicine Geriatric Medicine; ATTEND Internal Medicine Geriatric Medicine
DX: R07.89 Other chest pain (principal); E87.1 Hypo-osmolality and hyponatremia; E83.52 Hypercalcemia; I10 Essential (primary) hypertension; F41.0 Panic disorder [episodic paroxysmal anxiety]; R94.31 Abnormal electrocardiogram [ECG] [EKG]; R06.00 Dyspnea, unspecified; Z79.899 Other long term (current) drug therapy; F17.200 Nicotine dependence, unspecified, uncomplicated; M19.90 Unspecified osteoarthritis, unspecified site; Z87.09 Personal history of other diseases of the respiratory system
CPT/HCPCS: 93005; 99285; 36415 ×2; 82553; 82550; 85025; 80048; 80053; 81001; 84484 ×2; 85379; 71046; 93010; G0378 ×2; A9270

== ENCOUNTER → 2020-01-22 | Outpatient (CLI) | payer MEDICARE, MEDICAID ==
[~2020-01-22] MED LIST changes: +AMINOPHYLLINE INJ/PF 250 MG/10 ML SDV IV ONE; -DOXYCYCLINE HYCLATE 100 MG in DEXTROSE 5%-WATER 250 ML IV PRN; -LACTATED RINGERS 1000 ML IV PRN; -LIDOCAINE 0.5% INJ-PF (5 MG/ML) 50 ML SDV SUBCUT PRN; +REGADENOSON INJ 0.4 MG/5 ML DISP.SYRIN IV ONE
--- NOTE | 2020-01-22 18:29 | DRAGON STRESS TEST REPORT ---
INTRAVENOUS LEXISCAN CARDIOLITE STRESS TEST USING SINGLE PHOTON EMMISION COMPUTERIZED TOMOGRAPHIC. DATE OF PROCEDURE: February 21, 2020. INDICATION : Chest pain and shortness of breath. CARDIAC RISK FACTORS: Hypertension RESTING EKG: Sinus rhythm, no baseline ST-T wave changes noted. STRESS EKG: No significant ST segment changes noted with LexiScan bolus REASON FOR TERMINATION: Protocol. PROCEDURE REPORT: Baseline heart rate 55 beats per minute with blood pressure of 91/63. Patient had no significant complaints. Patient was bolused with Lexiscan 0.4 mg intravenously followed by saline bolus. Heart rate at 2 minutes post bolus 71 with a blood pressure of 95/59. 3 minutes post bolus heart rate 69 with blood pressure of 97/58. No significant EKG changes were noted. Patient had no significant complaints during the procedure or postprocedure. CONCLUSIONS: Normal EKG and hemodynamic response to IV LexiScan. NUCLEAR DATA: At rest the patient was given 11.69 millicuries of technetium 99 sestamibi injected intravenously. As per protocol rest gated SPECT images were obtained. On day of stress test, the patient was given intravenous LexiScan at a dose of 0.4 mg in 5 mL intravenously, followed by flush with normal saline. Subsequently the stress dose of 33.7 millicuries of technetium 99 sestamibi was injected intravenously. As per protocol stress gated images were obtained. NUCLEAR INTERPRETATION: Both raw and processed data were used for interpretation. Visual, qualitative, computer-generated quantitative data was used. There was good myocardial uptake of technetium compound. Motion artifact and soft tissue attenuations were noted. Increased visceral uptake was noted. No definitive areas of transient perfusion defect noted, No definitive areas of fixed perfusion defect or scars noted. EKG gated imaging showed LV EF at 56 %, rest and stress gated EF similar visually. T. I D. ratio was 1.20. Lung heart ratio noted to be within normal limits 0.35. No significant extracardiac and abnormal radiotracer activities were noted. RV free wall uptake was noted to be WNL. IMPRESSION: Also refer to comments under nuclear interpretation. Also test results needs to be interpreted in the context of pretest probability. 1. No definitive areas of transient perfusion defect noted. 2. There is no definitive scintigraphic evidence of myocardial infarction/scar. 3. EKG gated imaging shows left ventricular ejection fraction of approx. 56 %. 4. Clinical correlation requested as worse disease and or balanced ischemia could be missed. In approximately 10% of the cases Lexiscan may not cause adequate vasodilatory stress. RECOMMENDATIONS: Aggressive risk factor modification and medical management. Further evaluation may be needed if continued symptoms or other high risk indicators are noted on clinical evaluation. Close cardiology follow-up is also recommended. Clinical correlation with echocardiogram derived ejection fraction. Inability to exercise by itself can lead to increased cardiovascular event risks. Consider cardiology consultation and or follow-up if clinically indicated. I am available for cardiology evaluation and consultation if requested by the district manager primary care sales, unless patient already has a roofing tile sorter. Dr. Radha Gutiérrez. MRCP Board certified in cardiology and sleep medicine. Board certified in nuclear cardiology, adult echocardiography. KULDIP
== END ==
LOC: RAD 07:32
PROVIDERS: ATTEND Internal Medicine
DX: R07.9 Chest pain, unspecified (principal); R06.02 Shortness of breath
CPT/HCPCS: 93017; 78452; A9500; J2785; J0280; Q9969

== ENCOUNTER → 2020-02-24 | Outpatient (CLI) | payer MEDICARE, MEDICAID ==
--- NOTE | 2020-02-24 16:42 | RADIOLOGY REPORT (SQ) ---
EXAM DESCRIPTION: CTA CHEST IMAGES COMPLETED DATE/TIME: 02/24/2020 4:27 pm REASON FOR STUDY: R06.02 SHORTNESS OF BREATH R06.02 SHORTNESS OF BREATH COMPARISON: None. TECHNIQUE: CT scan of the chest performed using helical scanning technique with dynamic intravenous contrast injection. Images reviewed with lung, soft tissue and bone windows. Reconstructed coronal and sagittal MPR images reviewed. Additional 3 dimensional post-processing performed to develop Maximal Intensity Projection images (LA P). All images stored on PACS. All CT scanners at this facility use dose modulation, iterative reconstruction, and/or weight based d osing when appropriate to reduce radiation dose to as low as reasonably achievable (ALARA). [facility]: Dose Right [facility]: CareDose [facility]: Dose Right [facility]: Teradose 4D [facility]: [employer] CONTRAST TYPE AND DOSE: contrast/concentration: Isovue 350.00 mmol/ml; Total Contrast Delivered: 54. 0 ml; Total Saline Delivered: 41.2 ml Contrast bolus adequate for pulmonary arteries and aorta. RENAL FUNCTION: Creatinine 0.6c RADIATION DOSE: CT Rad equipment meets quality standard of care and radiation dose reduction techniq ues were employed. CTDIvol: 6.6 - 14.5 mGy. DLP: 531 mGy-cm. . LIMITATIONS: None. FINDINGS: LUNGS AND PLEURA: No masses, infiltrates, or pneumothorax. No pleural effusions or pleura l calcifications. AORTA AND GREAT VESSELS: No aneurysm. No dissection. HEART: No pericardial effusion. No significant coronary artery calcifications. PULMONARY ARTERIES: No emboli visualized in the main pulmonary arteries or the segmental branches. HILAR AND MEDIASTINAL STRUCTURES: No identified masses or abnormal nodes. HARDWARE: None in the chest. UPPER ABDOMEN: There is a collar around the gastroesophageal junction. THYROID AND OTHER SOFT TISSUES: No masses. No adenopathy. BONES: No acute or significant finding. 3D MIPS: Confirm above findings. OTHER: No other significant finding. IMPRESSION: There is no pulmonary embolus. There is no aortic aneurysm or dissection. There are no acute findings in the thorax. COMMENT: Quality ID # [id number]: Final reports with documentation of one or more dose reduction techniques (e.g., Automated exposure control, adjustment of the mA and/or kV according to patient size, use of iterative reconstruction technique) TECHNICAL DOCUMENTATION: JOB ID: [id number] 2010 [employer]- All Rights Reserved Reading location - IP/workstation name: [email or web address]
== END ==
LOC: RAD 15:59
PROVIDERS: ATTEND Internal Medicine
DX: R06.02 Shortness of breath (principal)
CPT/HCPCS: 71275; 82565